=== PATIENT | female | born 1935 | race Caucasian/White ===

== ENCOUNTER 2017-04-17 11:03 | Inpatient (IN) | payer MEDICARE, BC ==
[2017-04-17] MEDS ORDERED: Sodium Chloride 0.9% 10 ML Syringe FLUSH PRN (11:49)
[2017-04-17] MEDS ORDERED: Sodium Chloride 0.9% 1,000 ML IV ONE (11:53)
--- NOTE | 2017-04-17 12:02 | EDM.PDOC ---
ED HPI GENERAL MEDICAL PROBLEM - General Chief Complaint: Abdominal Pain Stated Complaint: FEVER/GALL BLADDER PAIN/L LEG PAIN Time Seen by Provider: 04/17/17 11:27 Source of Information: Reports: Patient History Limitations: Reports: No Limitations - History of Present Illness INITIAL COMMENTS - FREE TEXT/NARRATIVE: 81-year-old female presents for evaluation and treatment of several different complaints. Patient reports that she has been experiencing "gallbladder pain" for the last 2 days. She began concerned last night when she developed a fever. She has not taken any Tylenol or Motrin for her symptoms. She is reporting pain in the epigastric area. No radiation to the back or chest. No shortness of breath. Patient reports that she had a small sip of water today but no other intake to be today. She did not take her medications today. She denies any nausea or vomiting. Patient reports that the fever developed last night. She denies any sore throat, ear pain or cough. She states that she is having a headache across the front of her for head. She felt dizzy this morning. She has not appreciated any blurry vision or double vision. She states that she has been having "lots of reflux " recently. Patient had an EGD and colonoscopy done with Dr. Hernandez on 03-26-17. Diagnosis from the EGD include gastritis and gastric polyps. Diagnosis from the colonoscopy included multiple diverticula, internal hemorrhoid and polyps. Patient reports that she's had an ultrasound of her right upper quadrant. She does not know these results. She has not had a HIDA scan. She states that she is scheduled to see Dr. Beard in [place] this . It does not sound like she is not scheduled for surgery but will see her for consult. Patient reports this is for her gallbladder pain. Patient reports that she had one episode of incontinence today. She is currently on antibiotics for urinary tract infection. She reports she is nearly complete with these. She denies any dysuria. Patient is also complaining of left proximal lower leg pain. States this has been going on for the last few days. She is on Coumadin but has been off of this recently for her EGD and colonoscopy. It has been since restarted. She states that her INR has been subtherapeutic. Her last INR was 1.3. She is supposed to have an INR checked in on . She has not appreciated any erythema. She has no history of blood clots. Patient feels that the swelling in her legs is worse than normal. Known numbness or tingling on her normal to the legs. Patient reports 3 weeks ago she had a steroid injection to her back at L4. This has substantially improved her back pain and she currently has none. No erythema , pus or drainage from the injection site. Past abdominal surgeries includes an appendectomy. Location: Reports: Abdomen (epigastric) Abdominal Pain Score (Numeric/FACES): 3 - Related Data Allergies Allergy/AdvReac Type Severity Reaction Status Date / Time acetaminophen AdvReac Dizziness Verified 07/20/16 08:28 [From Darvocet-N] imipramine HCl AdvReac Fatigue Verified 07/20/16 08:28 [From Tofranil] propoxyphene napsylate AdvReac Dizziness Verified 07/20/16 08:28 [From Darvocet-N] bandaids Allergy Itching Uncoded 07/20/16 08:28 pentapiperium methylsulfate Allergy Cannot Uncoded 07/20/16 08:28 Remember Home Meds: Home Meds Acetaminophen [Tylenol Extra Strength] 500 mg PO BID 07/19/16 [History] Betamethasone Dipropionate [Diprosone 0.05% Crm] 1 applic TOP DAILY PRN [History] Celecoxib [CeleBREX] 200 mg PO DAILY 07/19/16 [History] Denosumab [Prolia] 60 mg SUBCUT ASDIRECTED 07/19/16 [History] Fexofenadine [Sherin] 180 mg PO DAILY PRN 07/19/16 [History] Fish Oil/Mckenzie-3 Fatty Acids [Fish Oil 1,000 MG] 1 cap PO BID 07/19/16 [History] Furosemide 1 tab PO DAILY 07/19/16 [History] Gabapentin [Neurontin] 300 mg PO BEDTIME 07/19/16 [History] Glimepiride 2 mg PO DAILY 07/19/16 [History] Gluc/MSM/C/Arminto/Manganese/Justina [Joint Support Complex Softgel] 1 tab PO DAILY [History] Losartan [Cozaar] 1 tab PO DAILY 07/19/16 [History] Metoprolol Tartrate 50 mg PO BID 07/19/16 [History] Omeprazole 20 mg PO BIDAC 07/19/16 [History] Potassium Chloride [Klor-Con 10] 10 meq PO DAILY 07/19/16 [History] Pravastatin [Pravachol] 40 mg PO BEDTIME 07/19/16 [History] Triamcinolone Acetonide [Nasacort] 1 spray NASBOTH DAILY PRN 07/19/16 [History] Magnesium 100 mg PO BID 04/17/17 [History] Acetaminophen/oxyCODONE [Percocet 325-5 MG] 1 - 2 tab PO Q4H #30 tablet [Rx] Ondansetron [Zofran ODT] 4 mg PO Q6H PRN #10 tab.dis 04/18/17 [Rx] Sennosides/Docusate Sodium [Senna-S] 2 tab PO BID #30 tablet 04/18/17 [Rx] Past Medical History HEENT History: Reports: Cataract, Hard of Hearing, Impaired Vision Cardiovascular History: Reports: Afib, Hypertension, Pacemaker Other Cardiovascular History: tachy/oh syndrome Respiratory History: Reports: None Gastrointestinal History: Reports: Colon Polyp, GERD Musculoskeletal History: Reports: Arthritis, Fracture Other Musculoskeletal History: right tardy ulnar nerve palsy, ankle fracture bilaterally Neurological History: Reports: None Endocrine/Metabolic History: Reports: Diabetes, Type II, Obesity/BMI 30+ Hematologic History: Reports: Anemia Oncologic (Cancer) History: Reports: None Dermatologic History: Reports: Other (See Below) Other Dermatologic History: dry itchy skin - Past Surgical History HEENT Surgical History: Reports: Cataract Surgery Cardiovascular Surgical History: Reports: Pacer GI Surgical History: Reports: Appendectomy, Colonoscopy, EGD Female Surgical History: Reports: Breast Biopsy Neurological Surgical History: Reports: None Other Neurological Surgeries/Procedures: surgery for pinched nerves Musculoskeletal Surgical History: Reports: Carpal Tunnel, Joint Replacement, Other (See Below) Other Musculoskeletal Surgeries/Procedures:: pins and screws in left ankle Social & Family History - Family History Family Medical History: Noncontributory - Tobacco Use Smoking Status *Q: Never Smoker Second Hand Smoke Exposure: No - Caffeine Use Caffeine Use: Reports: Soda - Alcohol Use Days Per Week of Alcohol Use: 0 - Recreational Drug Use Recreational Drug Use: No Drug Use in Last 12 Months: No ED ROS GENERAL - Review of Systems Review Of Systems: See Below Constitutional: Reports: Fever HEENT: Reports: Other (reports hallotosis). Denies: Ear Pain, Throat Pain Respiratory: Denies: Shortness of Breath Cardiovascular: Denies: Chest Pain GI/Abdominal: Reports: Abdominal Pain. Denies: Nausea, Vomiting : Reports: Incontinence (x1 episode) Musculoskeletal: Reports: Leg Pain (left proximal lower leg). Denies: Back Pain Skin: Denies: Pruritis, Erythema Neurological: Reports: Dizziness, Headache, Numbness (reports chronic numbness and decreased sensation to the left lateral leg; no change). Denies: Tingling ED EXAM, GI/ABD - Physical Exam Exam: See Below Exam Limited By: No Limitations General Appearance: Alert, WD/WN, No Apparent Distress, Obese Ears: Normal External Exam, Normal Canal, Hearing Grossly Normal Nose: Normal Inspection Throat/Mouth: Normal Inspection, Normal Voice, No Airway Compromise Respiratory/Chest: No Respiratory Distress, Lungs Clear Cardiovascular: Normal Peripheral Pulses, Regular Rate, Rhythm, Systolic Murmur (grade 2) GI/Abdominal: Normal Bowel Sounds, Soft, Tenderness (epigastric) Back Exam: Normal Inspection. No: Vertebral Tenderness Extremities: Gloria's Sign (left), Other (dorsalis pedis and posterior tibialis pulses 1+ bilaterally; non pitting edema bilaterally). No: Pallor Neurological: Alert, Oriented, Normal Cognition Psychiatric: Normal Affect, Normal Mood Skin Exam: Warm, Dry, Rash (bilateral distal legs has a macular papular erythematous, blanching rash) EKG INTERPRETATION EKG Date: 04/17/17 Time: 12:00 EKG Interpretation Comments: atrial paced rhythm at 73 bpm. Reviewed by myself and Dr. Alfaro Course - Vital Signs Last Recorded V/S: Last Vital Signs Temp 36.2 C 04/19/17 08:17 Pulse 82 04/19/17 09:17 Resp 12 04/19/17 08:17 BP 129/47 L 04/19/17 09:17 Pulse Ox 93 L 04/19/17 08:17 - Orders/Labs/Meds Labs: Laboratory Tests 04/17/17 04/17/17 04/17/17 Range/Units 11:22 11:22 11:22 WBC 7.53 (3.98-10.04) K/mm3 RBC 4.52 (3.98-5.22) M/mm3 Hgb 14.5 (11.2-15.7) gm/L Hct 44.4 (34.1-44.9) % MCV 98.2 H (79.4-94.8) fl MCH 32.1 (25.6-32.2) pg MCHC 32.7 (32.2-35.5) g/dl RDW Std Deviation 57.0 H (36.4-46.3) fL Plt Count 138 L (182-369) K/mm3 MPV 10.9 (9.4-12.3) fl Neutrophils % (Manual) 75 H (40-60) % Band Neutrophils % 9 (0-10) % Lymphocytes % (Manual) 11 L (20-40) % Atypical Lymphs % 0 % Monocytes % (Manual) 4 (2-10) % Eosinophils % (Manual) 1 (0.7-5.8) % Basophils % (Manual) 0 L (0.1-1.2) Platelet Estimate Adequate RBC Morph Comment Normal PT 21.4 H (8.0-13.0) SECONDS INR 1.89 Sodium 139 (136-145) mEq/L Potassium 4.0 (3.5-5.1) mEq/L Chloride 104 (98-107) mEq/L Carbon Dioxide 27 (21-32) mEq/L Anion Gap 12.0 (5-15) BUN 17 (7-18) mg/dL Creatinine 1.4 H (0.55-1.02) mg/dL Est Cr Clr Drug Dosing 23.40 mL/min Estimated GFR (MDRD) 36 (>60) mL/min BUN/Creatinine Ratio 12.1 L (14-18) Glucose 184 H (83-115) mg/dL Lactic Acid (0.4-2.0) mmol/L Calcium 10.0 (8.5-10.1) mg/dL Total Bilirubin 1.3 H (0.2-1.0) mg/dL Direct Bilirubin (0.0-0.2) mg/dl GGT 106 H (5-55) U/L AST 31 (15-37) U/L ALT 37 (14-59) U/L Alkaline Phosphatase 109 (46-116) U/L Troponin I < 0.017 (0.00-0.056) ng/mL C-Reactive Protein 3.5 H* (<1.0) mg/dL B-Natriuretic Peptide (0-100) pg/mL Total Protein 7.3 (6.4-8.2) g/dl Albumin 3.2 L (3.4-5.0) g/dl Globulin 4.1 gm/dL Albumin/Globulin Ratio 0.8 L (1-2) Lipase 78 (73-393) U/L Urine Color (Yellow) Urine Appearance (Clear) Urine pH (5.0-8.0) Ur Specific [place] (1.005-1.030) Urine Protein (Negative) Urine Glucose (UA) (Negative) Urine Ketones (Negative) Urine Occult Blood (Negative) Urine Nitrite (Negative) Urine Bilirubin (Negative) Urine Urobilinogen (0.2-1.0) Ur Leukocyte Esterase (Negative) Urine RBC (0-5) /hpf Urine WBC (0-5) /hpf Ur Epithelial Cells (0-5) /hpf Urine Bacteria (FEW) /hpf Urine Mucus (FEW) /hpf 04/17/17 04/17/17 04/17/17 Range/Units 11:22 12:10 12:27 WBC (3.98-10.04) K/mm3 RBC (3.98-5.22) M/mm3 Hgb (11.2-15.7) gm/L Hct (34.1-44.9) % MCV (79.4-94.8) fl MCH (25.6-32.2) pg MCHC (32.2-35.5) g/dl RDW Std Deviation (36.4-46.3) fL Plt Count (182-369) K/mm3 MPV (9.4-12.3) fl Neutrophils % (Manual) (40-60) % Band Neutrophils % (0-10) % Lymphocytes % (Manual) (20-40) % Atypical Lymphs % % Monocytes % (Manual) (2-10) % Eosinophils % (Manual) (0.7-5.8) % Basophils % (Manual) (0.1-1.2) Platelet Estimate RBC Morph Comment PT (8.0-13.0) SECONDS INR Sodium (136-145) mEq/L Potassium (3.5-5.1) mEq/L Chloride (98-107) mEq/L Carbon Dioxide (21-32) mEq/L Anion Gap (5-15) BUN (7-18) mg/dL Creatinine (0.55-1.02) mg/dL Est Cr Clr Drug Dosing mL/min Estimated GFR (MDRD) (>60) mL/min BUN/Creatinine Ratio (14-18) Glucose (83-115) mg/dL Lactic Acid 2.4 H (0.4-2.0) mmol/L Calcium (8.5-10.1) mg/dL Total Bilirubin (0.2-1.0) mg/dL Direct Bilirubin (0.0-0.2) mg/dl GGT (5-55) U/L AST (15-37) U/L ALT (14-59) U/L Alkaline Phosphatase (46-116) U/L Troponin I (0.00-0.056) ng/mL C-Reactive Protein (<1.0) mg/dL B-Natriuretic Peptide 209 H (0-100) pg/mL Total Protein (6.4-8.2) g/dl Albumin (3.4-5.0) g/dl Globulin gm/dL Albumin/Globulin Ratio (1-2) Lipase (73-393) U/L Urine Color Yellow (Yellow) Urine Appearance Clear (Clear) Urine pH 7.0 (5.0-8.0) Ur Specific [place] 1.020 (1.005-1.030) Urine Protein 1+ H (Negative) Urine Glucose (UA) Negative (Negative) Urine Ketones Trace H (Negative) Urine Occult Blood Negative (Negative) Urine Nitrite Negative (Negative) Urine Bilirubin Negative (Negative) Urine Urobilinogen 1.0 (0.2-1.0) Ur Leukocyte Esterase 1+ H (Negative) Urine RBC Not seen (0-5) /hpf Urine WBC 5-10 H (0-5) /hpf Ur Epithelial Cells 5-10 H (0-5) /hpf Urine Bacteria Few (FEW) /hpf Urine Mucus Few (FEW) /hpf 04/17/ Range/Units 14:50 WBC (3.98-10.04) K/mm3 RBC (3.98-5.22) M/mm3 Hgb (11.2-15.7) gm/L Hct (34.1-44.9) % MCV (79.4-94.8) fl MCH (25.6-32.2) pg MCHC (32.2-35.5) g/dl RDW Std Deviation (36.4-46.3) fL Plt Count (182-369) K/mm3 MPV (9.4-12.3) fl Neutrophils % (Manual) (40-60) % Band Neutrophils % (0-10) % Lymphocytes % (Manual) (20-40) % Atypical Lymphs % % Monocytes % (Manual) (2-10) % Eosinophils % (Manual) (0.7-5.8) % Basophils % (Manual) (0.1-1.2) Platelet Estimate RBC Morph Comment PT (8.0-13.0) SECONDS INR Sodium (136-145) mEq/L Potassium (3.5-5.1) mEq/L Chloride (98-107) mEq/L Carbon Dioxide (21-32) mEq/L Anion Gap (5-15) BUN (7-18) mg/dL Creatinine (0.55-1.02) mg/dL Est Cr Clr Drug Dosing mL/min Estimated GFR (MDRD) (>60) mL/min BUN/Creatinine Ratio (14-18) Glucose (83-115) mg/dL Lactic Acid (0.4-2.0) mmol/L Calcium (8.5-10.1) mg/dL Total Bilirubin (0.2-1.0) mg/dL Direct Bilirubin 0.20 (0.0-0.2) mg/dl GGT (5-55) U/L AST (15-37) U/L ALT (14-59) U/L Alkaline Phosphatase (46-116) U/L Troponin I (0.00-0.056) ng/mL C-Reactive Protein (<1.0) mg/dL B-Natriuretic Peptide (0-100) pg/mL Total Protein (6.4-8.2) g/dl Albumin (3.4-5.0) g/dl Globulin gm/dL Albumin/Globulin Ratio (1-2) Lipase (73-393) U/L Urine Color (Yellow) Urine Appearance (Clear) Urine pH (5.0-8.0) Ur Specific [place] (1.005-1.030) Urine Protein (Negative) Urine Glucose (UA) (Negative) Urine Ketones (Negative) Urine Occult Blood (Negative) Urine Nitrite (Negative) Urine Bilirubin (Negative) Urine Urobilinogen (0.2-1.0) Ur Leukocyte Esterase (Negative) Urine RBC (0-5) /hpf Urine WBC (0-5) /hpf Ur Epithelial Cells (0-5) /hpf Urine Bacteria (FEW) /hpf Urine Mucus (FEW) /hpf Meds: Medications Discontinued Medications Generic Name Dose Route Start Last Admin Trade Name Wilmanq PRN Reason Stop Dose Admin Acetaminophen 650 mg 04/17/17 17:51 04/19/17 06:09 Tylenol PO 650 mg Q6H PRN Administration Pain Bupivacaine HCl/Epinephrine Bitart Confirm 04/18/17 10:23 04/18/17 13:34 Marcaine 0.5%/Epinephrine 1:200,000 Administered 04/18/17 10:24 20 ml Dose Administration 50 ml .ROUTE .STK-MED ONE Diphenhydramine HCl 25 mg 04/18/17 10:11 04/18/17 10:15 Benadryl IVPUSH 04/18/17 10:12 25 mg ONETIME ONE Administration Ephedrine Sulfate Confirm 04/18/17 13:22 Ephedrine In Ns Administered 04/18/17 13:23 Dose 25 mg .ROUTE .STK-MED ONE Fentanyl Confirm 04/18/17 11:46 Sublimaze Administered 04/18/17 11:47 Dose 250 mcg .ROUTE .STK-MED ONE Fentanyl 50 mcg 04/18/17 13:20 Sublimaze IVPUSH 04/18/17 18:00 Q5M PRN Pain Flunisolide 0 ml 04/17/17 16:51 Nasalide Nasal [place] NASBOTH BID PRN stufiness Furosemide 40 mg 04/18/17 09:00 04/19/17 09:15 Lasix PO 40 mg DAILY CHARLINE Administration Gabapentin 300 mg 04/17/17 21:00 04/18/17 20:25 Neurontin PO 300 mg BEDTIME CHARLINE Administration Glycopyrrolate Confirm 04/18/17 14:09 Administered 04/18/17 14:10 Dose 1 mg .ROUTE .STK-MED ONE Hydromorphone HCl 0.5 mg 04/18/17 13:50 Dilaudid IVPUSH 04/18/17 14:06 Q15M PRN severe pain Sodium Chloride 1,000 mls @ 100 mls/hr 04/17/17 11:53 04/17/17 12:13 Normal Saline IV 04/17/17 21:52 100 mls/hr ONETIME ONE Administration Piperacillin Sod/Tazobactam 100 mls @ 25 mls/hr 04/17/17 13:40 04/17/17 14:43 Sod 2.25 gm/ Sodium Chloride IV 04/17/17 17:39 Not Given NOW STA Piperacillin Sod/Tazobactam 100 mls @ 200 mls/hr 04/17/17 14:21 04/17/17 14: 48 Sod 2.25 gm/ Sodium Chloride IV 04/17/17 14:50 100 mls/hr ONETIME ONE Administration Sodium Chloride 1,000 mls @ 100 mls/hr 04/17/17 17:00 Normal Saline IV ASDIRECTED CHARLINE Ceftriaxone Sodium 1 gm/ 100 mls @ 200 mls/hr 04/17/17 17:00 04/17/17 17:33 Sodium Chloride IV Not Given Q24H CHARLINE Ceftriaxone Sodium 1 gm/ 100 mls @ 200 mls/hr 04/17/17 17:00 04/18/17 17:19 Sodium Chloride IV 200 mls/hr Q24H CHARLINE Administration Sodium Chloride 1,000 mls @ 25 mls/hr 04/17/17 17:45 04/18/17 12:13 Normal Saline IV 25 mls/hr ASDIRECTED CHARLINE Administration Lidocaine HCl Confirm 04/18/17 11:46 Xylocaine-Mpf 1% Administered 04/18/17 11:47 Dose 4 mls @ as directed .ROUTE .STK-MED ONE Lidocaine/Epinephrine Confirm 04/18/17 10:23 04/18/17 13:34 Xylocaine 1% With Epinephrine 1:100,000 Administered 04/18/17 10:24 20 ml Dose Administration 20 ml .ROUTE .STK-MED ONE Losartan Potassium 100 mg 04/18/17 09:00 04/19/17 09:15 Cozaar PO 100 mg DAILY CHARLINE Administration Magnesium Oxide 100 mg 04/17/17 21:00 04/19/17 09:15 Magnesium Oxide PO 100 mg BID CHARLINE Administration Meperidine HCl 12.5 mg 04/18/17 13:20 Demerol IVPUSH 04/19/17 13:21 ONETIME PRN shivering Metoprolol Tartrate 50 mg 04/17/17 21:00 04/19/17 09:17 Lopressor PO 50 mg BID CHARLINE Administration Neostigmine Methylsulfate Confirm 04/18/17 14:09 Neostigmine Administered 04/18/17 14:10 Dose 5 mg .ROUTE .STK-MED ONE Ondansetron HCl Confirm 04/18/17 11:46 Zofran Administered 04/18/17 11:47 Dose 4 mg .ROUTE .STK-MED ONE Ondansetron HCl 4 mg 04/18/17 13:20 Zofran IVPUSH 04/18/17 18:00 ONETIME PRN Nausea/Vomiting Pantoprazole Sodium 40 mg 04/18/17 06:00 04/19/17 06:06 Protonix PO 40 mg BIDAC CHARLINE Administration Betamethasone 0 each 04/17/17 16:51 04/19/17 09:45 Dipropionate 0.05% TOP 1 each Cream DAILY PRN Administration Rash Phytonadione 10 mg 04/17/17 15:09 04/17/17 19:50 Aquamephyton PO 04/17/17 15:10 Not Given ONETIME ONE Phytonadione 2.5 mg 04/17/17 15:35 04/17/17 15:40 Aquamephyton PO 04/17/17 15:36 2.5 mg ONETIME ONE Administration Phytonadione 10 mg 04/18/17 09:15 04/18/17 09:21 Aquamephyton PO 04/18/17 09:16 10 mg ONETIME ONE Administration Potassium Chloride 10 meq 04/18/17 09:00 04/19/17 09:15 Klor-Con 10 PO 10 meq DAILY CHARLINE Administration Propofol Confirm 04/18/17 11:46 Diprivan 20 Ml Administered 04/18/17 11:47 Dose 200 mg .ROUTE .STK-MED ONE Rocuronium [place] Confirm 04/18/17 11:46 Zemuron Administered 04/18/17 11:47 Dose 50 mg .ROUTE .STK-MED ONE Simvastatin 20 mg 04/17/17 21:00 04/18/17 20:25 Zocor PO 20 mg BEDTIME CHARLINE Administration Sodium Chloride 10 ml 04/17/17 11:49 04/17/17 12:13 Saline Flush FLUSH 10 ml ASDIRECTED PRN Administration Keep Vein Open - Radiology Interpretation Free Text/Narrative:: Ultrasound of the left lower leg impression per Dr. Campbell: Nothing appreciated to indicate DVT within the left lower extremity or within the right common femoral vein. Findings as described. Ultrasound limited of the right upper quadrant impression per Dr. Campbell 1. Probable fatty infiltration within the liver. 2. Single gallstone within the gallbladder measuring 6.3 mm. 3. No additional abnormalities appreciated. Chest x-ray shows no acute intrathoracic process. - Re-Assessments/Exams Free Text/Narrative Re-Assessment/Exam: 04/17/17 13:34 Labs returned. wbc is 7.53 with 9% bands, hgb is 14.5 and plts are 138 sodium is 139, potassium 4.0 and chloride is 104 anion gapi s 12.0. gluclose is 184. creatinins ie 1.4 Total bili is 1.3, AST is 31, ALT is 37 and alk phos is 109. GGT is 106 pt is 21.4, INR is 1.89 crp is 3.5 BNP is 209 trop is < 0.017 lipase is 78 UA has few bacteria, negative nitrites, 1+ protein, trace ketones and 1+ leuks Preliminary ultrasound report is negative for any DVT. Case discussed with Dr. Villa. Recommend proceeding with the abdominal ultrasound is planned. Recommend starting IV Zosyn. Will probably require admission. I discussed the lab results with the patient. We will obtain an ultrasound of her gallbladder to rule out acute cholecystitis. 04/17/17 15:50 direct bili is 0.20 lactic acid is 2.4 blood and urine cultures obtained. Discussed case with Dr. Hernandez. She knows the patient well. plan will be to admit the patient and have a cholecystectomy tomorrow. asked she only have clears and give 10mg vitamin K to reverse coumadin. Nursing staff had trouble obtaining the 10mg vitamin K. Dr. Danielle was present and felt she only required 2.5mg vitamin K for reversal. Patient was therefore given 2.5 mg vitamin K for coumadin reversal. Admitted to Dr. Hernandez for acute cholecysitis with plan on surgery tomorrow. Departure - Departure Time of Disposition: 15:50 Disposition: Admitted As Inpatient 68 Condition: Fair Clinical Impression: Cholecystitis - Discharge Information
[2017-04-17] MEDS ORDERED: Piperacillin/Tazobactam 2.25 GM in Sodium Chloride 0.9% 100 ML IV STA (13:40)
--- NOTE | 2017-04-17 14:22 | US ---
Left lower extremity deep venous ultrasound: Duplex and color flow imaging was obtained of the left common femoral, superficial femoral, proximal greater saphenous, popliteal, posterior tibial and peroneal veins. Right common femoral vein was also evaluated. Veins within the calf not optimally seen for compression but normal phasic flow is felt to be present within the calf veins. Other veins show normal phasic flow, augmentation and compression. No popliteal cyst is seen. Right common femoral vein is patent. Impression: 1. Findings as described above. Nothing appreciated to indicate deep venous thrombosis within the left lower extremity or within the right common femoral vein. Diagnostic code #1
--- NOTE | 2017-04-17 14:29 | US ---
Limited abdominal ultrasound: Multiple real-time images were obtained of the right upper abdomen. Comparison: No previous right upper quadrant abdominal ultrasound. Technologist's note: Patient had difficulty with deep breathing, gassy Findings: Liver is slightly echogenic. No focal abnormality is appreciated within the liver. Pancreas is mostly obscured from bowel gas. Visualized portions of the pancreas appear unremarkable. Single gallstone is seen within the gallbladder measuring 6.3 mm. No gallbladder wall thickening or biliary duct dilatation is seen. Right kidney measures 9.6 cm in length. Right kidney shows no hydronephrosis or mass. Inferior vena cava and portal vein are patent. Impression: 1. Probable fatty infiltration within the liver. 2. Single gallstone within the gallbladder measuring 6.3 mm. 3. No additional abnormality is appreciated. Diagnostic code #3
[2017-04-17] MEDS: Piperacillin/Tazobactam 2.25 GM in Sodium Chloride 0.9% 100 ML IV ONE ×2 (14:43→14:48)
[2017-04-17] MEDS ORDERED: Phytonadione ORAL 2.5mg/2.5ml Soln Simple Syrup U/D PO ONE ×2 (15:09→15:35)
[2017-04-17] MEDS ORDERED: Sodium Chloride 0.9% 1,000 ML IV SCH (17:00)
[2017-04-17] MEDS ORDERED: cefTRIAXone 1 GM in Sodium Chloride 0.9% 100 ML IV SCH (17:00)
[2017-04-17] MEDS: cefTRIAXone 1 GM in Sodium Chloride 0.9% 100 ML IV SCH (17:32)
--- NOTE | 2017-04-17 17:35 | PCM.HP ---
H&P History of Present Illness - General Date of Service: 04/17/17 Admit Problem/Dx: Admission Diagnosis/Problem Admission Diagnosis/Problem Acute cholecystitis Source of Information: Patient, Old Records, Provider History Limitations: Reports: No Limitations - History of Present Illness Initial Comments - Free Text/Narative: 81 yo woman well known to me presented to ED today with c/o abd pain in epigastrium since yesterday. Has not had anything to eat or drink today. Has known cholelithiases and is currently planning for lap gurpreet in the near future. 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 Is on Coumadin, INR 1.8 in ED today. Recently performed EGD/colonoscopy for the patient which she tolerated well. Total Bilirubin (not direct) slightly elevated today at 1.3. Transaminases unremarkable. Reports low grade fevers at home, highest temp was 100.9 in ED. Denies N/V. Has had some headaches, also notes that she developed rash on bilateral knees this AM, non pruritic. She also has been taking Macrobid for E. Coli UTI inappropriately, was to take 100mg BID, has only been taking 50 mg BID. Still having frequency and some incontinence. CRP elevated in ED to 3.5. WBC normal with a bit of left shift. EKG unchanged and troponin unremarkable. Stress test 2014 - normal, EF > 70%. EKG in ED today. Friend at bedside today. Abdominal Pain Score (Numeric/FACES): 3 - Related Data Allergies/Adverse Reactions: Allergies Allergy/AdvReac Type Severity Reaction Status Date / Time acetaminophen AdvReac Dizziness Verified 07/20/16 08:28 [From Darvocet-N] imipramine HCl AdvReac Fatigue Verified 07/20/16 08:28 [From Tofranil] propoxyphene napsylate AdvReac Dizziness Verified 07/20/16 08:28 [From Darvocet-N] bandaids Allergy Itching Uncoded 07/20/16 08:28 pentapiperium methylsulfate Allergy Cannot Uncoded 07/20/16 08:28 Remember Home Medications: Home Meds Acetaminophen [Tylenol Extra Strength] 500 mg PO BID 07/19/16 [History] Betamethasone Dipropionate [Diprosone 0.05% Crm] 1 applic TOP DAILY PRN [History] Celecoxib [CeleBREX] 200 mg PO DAILY 07/19/16 [History] Denosumab [Prolia] 60 mg SUBCUT ASDIRECTED 07/19/16 [History] Fexofenadine [Sherin] 180 mg PO DAILY PRN 07/19/16 [History] Fish Oil/[place]-3 Fatty Acids [Fish Oil 1,000 MG] 1 cap PO BID 07/19/16 [History] Furosemide 1 tab PO DAILY 07/19/16 [History] Gabapentin [Neurontin] 300 mg PO BEDTIME 07/19/16 [History] Glimepiride 2 mg PO DAILY 07/19/16 [History] Gluc/MSM/C/[place]/Manganese/Justina [Joint Support Complex Softgel] 1 tab PO DAILY [History] Losartan [Cozaar] 1 tab PO DAILY 07/19/16 [History] Metoprolol Tartrate 50 mg PO BID 07/19/16 [History] Omeprazole 20 mg PO BIDAC 07/19/16 [History] Potassium Chloride [Klor-Con 10] 10 meq PO DAILY 07/19/16 [History] Pravastatin [Pravachol] 40 mg PO BEDTIME 07/19/16 [History] Triamcinolone Acetonide [Nasacort] 1 spray NASBOTH DAILY PRN 07/19/16 [History] Warfarin Sodium 2.5 mg PO SUTUWETHSA 07/19/16 [History] Warfarin Sodium 5 mg PO MOFR 07/19/16 [History] Magnesium 100 mg PO BID 04/17/17 [History] Past Medical History HEENT History: Reports: Cataract, Hard of Hearing, Impaired Vision Cardiovascular History: Reports: Afib, Hypertension, Pacemaker Other Cardiovascular History: tachy/oh syndrome Gastrointestinal History: Reports: Colon Polyp, GERD Genitourinary History: Reports: Urinary Incontinence, UTI, Recurrent Musculoskeletal History: Reports: Arthritis, Fracture Other Musculoskeletal History: right tardy ulnar nerve palsy, ankle fracture bilaterally Endocrine/Metabolic History: Reports: Diabetes, Type II, Obesity/BMI 30+ Hematologic History: Reports: Anemia Dermatologic History: Reports: Other (See Below) Other Dermatologic History: dry itchy skin - Past Surgical History HEENT Surgical History: Reports: Cataract Surgery Cardiovascular Surgical History: Reports: Pacer GI Surgical History: Reports: Appendectomy, Colonoscopy, EGD Female Surgical History: Reports: Breast Biopsy Neurological Surgical History: Reports: None Other Neurological Surgeries/Procedures: surgery for pinched nerves Musculoskeletal Surgical History: Reports: Carpal Tunnel, Joint Replacement, Knee Replacement (LEFT), Other (See Below) Other Musculoskeletal Surgeries/Procedures:: pins and screws in left ankle Oncologic Surgical History: Reports: Biopsy of Breast Social & Family History - Family History Family Medical History: Noncontributory Other Family History: [place] - FA - , Encephalitis 1 Brother of [place] - Tobacco Use Smoking Status *Q: Never Smoker Second Hand Smoke Exposure: No - Caffeine Use Caffeine Use: Reports: Soda - Alcohol Use Days Per Week of Alcohol Use: 0 - Recreational Drug Use Recreational Drug Use: No Drug Use in Last 12 Months: No - Living Situation & Occupation Living situation: Reports: Occupation: Retired Social History Comment: Patient is . She lives alone. She has 1 child and 2 adopted children. She is retired. Caffeine use is 1 can of Pepsi daily. H&P Review of Systems - Review of Systems: Review Of Systems: See Below General: Reports: Chills HEENT: Reports: Headaches Pulmonary: Reports: No Symptoms Cardiovascular: Reports: No Symptoms Gastrointestinal: Reports: Abdominal Pain (epigastrium ). Denies: Anorexia, Black Stool, Bloody Stool, Decreased Appetite, Nausea, Vomiting Genitourinary: Reports: Frequency, Incontinence Musculoskeletal: Reports: Joint Pain Skin: Reports: Rash (bilateral knees ) Psychiatric: Reports: No Symptoms Neurological: Reports: No Symptoms Hematologic/Lymphatic: Reports: No Symptoms Immunologic: Reports: No Symptoms Exam - Exam Exam: See Below - Vital Signs Vital Signs: Last Vital Signs Temp 99.0 F 04/17/17 16:30 Pulse 73 04/17/17 16:30 Resp 14 04/17/17 16:30 BP 138/90 04/17/17 16:30 Pulse Ox 94 L 04/17/17 16:30 Weight: 187 lb 12.8 oz - Exam Quality Assessment: No: Supplemental Oxygen General: Alert, Oriented, Cooperative HEENT: Conjunctiva Clear. No: Scleral Icterus Neck: Supple, Trachea Midline Lungs: Clear to Auscultation, Normal Respiratory Effort Cardiovascular: Regular Rate, Regular Rhythm Abdomen: Soft. No: Peritoneal Signs, Distention, Guarding, Rigidity, Rebound Rectal (Female) Exam: Deferred Extremities: No: Clubbing, Cyanosis, Calf Tenderness, Edema Skin: Warm, Dry, Intact, Rash (macular patches, none greater than 2 cm on the bilateral knees ) Neurological: Normal Speech. No: Focal Deficit Neuro Extensive - Mental Status: Alert, Oriented x3, Normal Mood/Affect, Normal Cognition, Memory Intact Psychiatric: Alert, Normal Affect, Normal Mood - Patient Data Result Diagrams: 04/17/17 11:22 04/17/17 11:22 Imaging Impressions Last 24 hrs: I personally reviewed the pt's US and CXR. Gallstone present, no GBW thickening , no pericholecystic fluid, no intra or extrahepatic ductal dilation. CXR with no evidence of acute issues, PCM in place. *Q Meaningful Use (ADM) - VTE *Q VTE Criteria *Q: - Stroke *Q Stroke Criteria *Q: - AMI *Q AMI Criteria *Q: - Problem List (1) Acute cholecystitis due to biliary calculus SNOMED Code(s): 10779611758636 ICD Code: K80.00 - CALCULUS OF GALLBLADDER W ACUTE CHOLECYST W/O OBSTRUCTION Status: Acute Current Visit: Yes (2) Cholelithiases SNOMED Code(s): 939953862 ICD Code: K80.20 - CALCULUS OF GALLBLADDER W/O CHOLECYSTITIS W/O OBSTRUCTION Status: Acute Current Visit: Yes (3) Diabetes mellitus SNOMED Code(s): 33469372 ICD Code: E11.9 - TYPE 2 DIABETES MELLITUS WITHOUT COMPLICATIONS Status: Chronic Current Visit: Yes Qualifiers: Diabetes mellitus type: type 2 (4) Rash SNOMED Code(s): 383506220, 624783338 ICD Code: R21 - RASH AND OTHER NONSPECIFIC SKIN ERUPTION Status: Acute Current Visit: Yes (5) Leg pain SNOMED Code(s): 54728068 ICD Code: M79.606 - PAIN IN LEG, UNSPECIFIED Status: Acute Current Visit : Yes Qualifiers: Laterality: left Qualified Code(s): M79.605 - Pain in left leg (6) Pacemaker SNOMED Code(s): 773699351, 944593632 ICD Code: Z95.0 - PRESENCE OF CARDIAC PACEMAKER Status: Chronic Current Visit: Yes (7) Atrial fibrillation SNOMED Code(s): 00126806 ICD Code: I48.91 - UNSPECIFIED ATRIAL FIBRILLATION Status: Chronic Current Visit: Yes (8) Tachy-oh syndrome SNOMED Code(s): 37191816 ICD Code: I49.5 - SICK SINUS SYNDROME Status: Chronic Current Visit: Yes Problem List Initiated/Reviewed/Updated: Yes Orders Last 24hrs: Active Orders 24 hr Category Date Time Status Patient Status [ADT] Routine ADT 04/17/17 16:06 Active Antiembolic Devices [RC] .Routine Care 04/17/17 16:48 Active Antiembolic Devices [RC] PER UNIT ROUTINE Care 04/17/17 16:48 Active Blood Glucose Check, Bedside [RC] Q6HR Care 04/17/17 16:51 Active Cardiac Monitoring [RC] . DIRECTED Care 04/17/17 16:06 Active Intake and Output [RC] Q4HR Care 04/17/17 16:53 Active Notify Provider Intake and Out [RC] ASDIRECTED Care 04/17/17 16:53 Active Notify Provider Vital Signs [RC] PRN Care 04/17/17 16:53 Active VTE/DVT Education [RC] PER UNIT ROUTINE Care 04/17/17 16:48 Active Vital Signs [RC] Q4HR Care 04/17/17 16:53 Active Clear Liquid Diet [DIET] Diet 04/17/17 Dinner Active Nothing per Oral After Midnight Diet [DIET] Diet 04/17/17 Dinner Active CBC WITH AUTO DIFF [HEME] AM Lab 04/18/17 05:11 Ordered COMPREHENSIVE METABOLIC PN,CMP [CHEM] AM Lab 04/18/17 05:11 Ordered INR,PT,PROTHROMBIN TIME [COAG] AM Lab 04/18/17 05:11 Ordered Betamethasone Dipropionate Med 04/17/17 16:51 Ordered 1 applic TOP DAILY PRN Flunisolide [Nasalide Nasal [place]] Med 04/17/17 16:51 Active 0 ml NASBOTH BID PRN Furosemide [Lasix] Med 04/18/17 09:00 Active 40 mg PO DAILY Gabapentin [Neurontin] Med 04/17/17 21:00 Active 300 mg PO BEDTIME Losartan [Cozaar] Med 04/18/17 09:00 Active 100 mg PO DAILY Metoprolol Tartrate [Lopressor] Med 04/17/17 21:00 Active 50 mg PO BID Pantoprazole [ProTONIX] Med 04/18/17 06:00 Active 40 mg PO BIDAC Potassium Chloride [Klor-Con 10] Med 04/18/17 09:00 Active 10 meq PO DAILY Simvastatin [Zocor] Med 04/17/17 21:00 Active 20 mg PO BEDTIME Sodium Chloride 0.9% [Normal Saline] 1,000 ml Med 04/17/17 17:00 Active IV ASDIRECTED cefTRIAXone [Rocephin] 1 gm Med 04/17/17 17:00 Active Sodium Chloride 0.9% [Normal Saline] 100 ml IV Q24H Antiembolic Hose [OM.PC] Routine Oth 04/17/17 16:47 Ordered DVT/VTE Prophylaxis Reflex [OM.PC] Routine Oth 04/17/17 16:47 Ordered Resuscitation Status Routine Resus Stat 04/17/17 16:47 Ordered Medication Orders Flunisolide (Nasalide Nasal [place]) 0 ml NASBOTH BID PRN PRN Reason: stufiness Furosemide (Lasix) 40 mg PO DAILY [facility]LINE Gabapentin (Neurontin) 300 mg PO BEDTIME CHARLINE Sodium Chloride (Normal Saline) 1,000 mls @ 100 mls/hr IV ASDIRECTED CHARLINE Ceftriaxone Sodium 1 gm/ (Sodium Chloride) 100 mls @ 200 mls/hr IV Q24H CHARLINE Losartan Potassium (Cozaar) 100 mg PO DAILY CHARLINE Metoprolol Tartrate (Lopressor) 50 mg PO BID CHARLINE Non-Formulary Medication (Betamethasone Dipropionate) 1 applic TOP DAILY PRN PRN Reason: Rash Pantoprazole Sodium (Protonix) 40 mg PO BIDAC CHARLINE Potassium Chloride (Klor-Con 10) 10 meq PO DAILY CHARLINE Simvastatin (Zocor) 20 mg PO BEDTIME CHARLINE Sodium Chloride (Saline Flush) 10 ml FLUSH ASDIRECTED PRN PRN Reason: Keep Vein Open Last Admin: 04/17/17 12:13 Dose: 10 ml Assessment/Plan Comment:: 81 yo with acute cholecystitis 2/2 cholelithiases, rash on bilateral knees and left leg pain, ? persistent UTI - patient was taking abx previously prescribed incorrectly Also, w/ PMH of Afib, now w/ PCM Tachy-oh syndrome HTN Hearing loss DM 2 - controlled, last A1C 6.7% Arthritis We discussed laparoscopic cholecystectomy for treatment of acute cholecystitis and associated symptoms. We discussed risks of the procedure including pain, bleeding, need for additional procedures, damage to surrounding structures including the biliary system and common bile duct, liver, small bowel, stomach and colon. We discussed the risk of postoperative change in bowel habits which can be permanent. We reviewed the post-operative lifting restrictions of no more than 20 lbs for 4 weeks. The patient's questions were answered. Will provide Rocephin 1gm IV daily for cholecystitis Urine culture pending, UTI may persist as had been taking too low a dose of Macrobid at home Rash on bilateral knees, uncertain etiology, started today prior to any medications will monitor CLD tonight, NPO at ID, plan for surgery tomorrow around 12 Coumadin held, Vit K given, will recheck INR in AM LEFT leg pain, currently not particularly painful, no evidence of DVT or other abnormality on US in ED
[2017-04-17] MEDS: Acetaminophen 325 MG Tab PO PRN (18:31)
[2017-04-17] MEDS: Magnesium Oxide 400 MG Tab PO SCH (20:48)
[2017-04-17] MEDS: Metoprolol Tartrate 50 MG Tab PO SCH (20:48)
[2017-04-17] MEDS: Simvastatin 20 MG Tab PO SCH (20:49)
[2017-04-17] MEDS: Gabapentin 300 MG Cap PO SCH (20:49)
[2017-04-18] MEDS: Pantoprazole 40 MG Tab.CR PO SCH ×2 (06:07→17:17)
--- NOTE | 2017-04-18 08:03 | CR ---
Chest: Portable view of the chest was obtained. Comparison: No previous chest x-ray. Heart size is slightly enlarged but somewhat accentuated from portable technique. Pacemaker is noted. Lungs are clear with no acute infiltrates. Bony structures are grossly intact. Impression: 1. Incidental findings. Nothing acute is identified on portable chest x-ray. Diagnostic code #2
[2017-04-18] MEDS: Metoprolol Tartrate 50 MG Tab PO SCH ×2 (08:53→20:25)
[2017-04-18] MEDS: Losartan 100 MG Tab PO SCH (08:55)
[2017-04-18] MEDS: Potassium Chloride 10 MEQ Tab.ER PO SCH (08:56)
[2017-04-18] MEDS: Furosemide 40 MG Tab PO SCH (08:56)
[2017-04-18] MEDS: Magnesium Oxide 400 MG Tab PO SCH ×2 (08:56→20:25)
[2017-04-18] MEDS ORDERED: Phytonadione ORAL 2.5mg/2.5ml Soln Simple Syrup U/D PO ONE (09:15)
[2017-04-18] MEDS ORDERED: diphenhydrAMINE 50 MG/ML SDV IVPUSH ONE (10:11)
[2017-04-18] MEDS ORDERED: Lidocaine 1% with EPINEPHrine 1:100,000 20 ML MDV ONE (10:23)
[2017-04-18] MEDS ORDERED: Bupivacaine 0.5%/EPINEPHrine 1:200,000 50 ML MDV ONE (10:23)
--- NOTE | 2017-04-18 11:11 | PCM.PREANE ---
[id number]/Transfusion/Family Hx Anesthesia History: Prior Anesthesia Without Reaction Family History of Anesthesia Reaction: No Transfusion History: No Prior Transfusion(s) Intubation History: Unknown - Review of Systems General: No Symptoms Pulmonary: No Symptoms Cardiovascular: Other (HTN- controlled with medication, Afib- on chornic anticoagulation, SSS- pateint has pacemaker. ) Gastrointestinal: No symptoms Neurological: No Symptoms Other: Reports: Easy Bleeding (on coumadin), Easy Bruising, Diabetes (oral medication controlled) - Physical Assessment NPO Status Date: 04/17/17 NPO Status Time: 23:59 Pulse: 85 O2 Sat by Pulse Oximetry: 98 Respiratory Rate: 20 Blood Pressure: 138/69 Temperature: 36.7 C Vital Signs: Last Vital Signs Temp 36.7 C 04/18/17 08:14 Pulse 85 04/18/17 08:53 Resp 2 L 04/18/17 08:14 BP 138/69 04/18/17 08:53 Pulse Ox 98 04/18/17 08:14 Height: 1.52 m Weight: 85.185 kg ASA Class: 3 Mental Status: Alert & Oriented x3 Airway Class: Mallampati = 1 Dentition: Reports: Normal Dentition Thyro-Mental Finger Breadths: 3 Mouth Opening Finger Breadths: 3 ROM/Head Extension: Full Lungs: Clear to auscultation, Normal respiratory effort Cardiovascular: Regular Rate, Regular Rhythm - Lab Values: Laboratory Last Values WBC 6.12 K/mm3 (3.98-10.04) 04/18/17 05:41 RBC 4.23 M/mm3 (3.98-5.22) 04/18/17 05:41 Hgb 13.5 gm/L (11.2-15.7) 04/18/17 05:41 Hct 41.5 % (34.1-44.9) 04/18/17 05:41 MCV 98.1 fl (79.4-94.8) H 04/18/17 05:41 MCH 31.9 pg (25.6-32.2) 04/18/17 05:41 MCHC 32.5 g/dl (32.2-35.5) 04/18/17 05:41 RDW Std Deviation 57.6 fL (36.4-46.3) H 04/18/17 05:41 Plt Count 123 K/mm3 (182-369) L 04/18/17 05:41 MPV 11.2 fl (9.4-12.3) 04/18/17 05:41 Neut % (Auto) 63.8 % (34.0-71.1) 04/18/17 05:41 Lymph % (Auto) 19.0 % (19.3-51.7) L 04/18/17 05:41 [place] % (Auto) 11.4 % (4.7-12.5) 04/18/17 05:41 Eos % (Auto) 5.4 (0.7-5.8) 04/18/17 05:41 Baso % (Auto) 0.2 % (0.1-1.2) 04/18/17 05:41 Neut # (Auto) 3.91 K/mm3 (1.56-6.13) 04/18/17 05:41 Lymph # (Auto) 1.16 K/mm3 (1.18-3.74) L 04/18/17 05:41 [place] # (Auto) 0.70 K/mm3 (0.24-0.36) H 04/18/17 05:41 Eos # (Auto) 0.33 K/mm3 (0.04-0.36) 04/18/17 05:41 Baso # (Auto) 0.01 K/mm3 (0.01-0.08) 04/18/17 05:41 Neutrophils % (Manual) 75 % (40-60) H 04/17/17 11:22 Band Neutrophils % 9 % (0-10) 04/17/17 11:22 Lymphocytes % (Manual) 11 % (20-40) L 04/17/17 11:22 Atypical Lymphs % 0 % 04/17/17 11:22 Monocytes % (Manual) 4 % (2-10) 04/17/17 11:22 Eosinophils % (Manual) 1 % (0.7-5.8) 04/17/17 11:22 Basophils % (Manual) 0 (0.1-1.2) L 04/17/17 11:22 Platelet Estimate Adequate 04/17/17 11:22 RBC Morph Comment Normal 04/17/17 11:22 PT 16.8 SECONDS (8.0-13.0) H 04/18/17 05:41 INR 1.50 04/18/17 05:41 Sodium 142 mEq/L (136-145) 04/18/17 05:41 Potassium 3.9 mEq/L (3.5-5.1) 04/18/17 05:41 Chloride 108 mEq/L (98-107) H 04/18/17 05:41 Carbon Dioxide 25 mEq/L (21-32) 04/18/17 05:41 Anion Gap 12.9 (5-15) 04/18/17 05:41 BUN 14 mg/dL (7-18) 04/18/17 05:41 Creatinine 1.2 mg/dL (0.55-1.02) H 04/18/17 05:41 Est Cr Clr Drug Dosing 27.30 mL/min 04/18/17 05:41 Estimated GFR (MDRD) 43 mL/min (>60) 04/18/17 05:41 BUN/Creatinine Ratio 11.7 (14-18) L 04/18/17 05:41 Glucose 132 mg/dL (83-115) H 04/18/17 05:41 POC Glucose 119 mg/dL (83-110) H 04/18/17 05:45 Lactic Acid 2.4 mmol/L (0.4-2.0) H 04/17/17 12:27 Calcium 9.0 mg/dL (8.5-10.1) 04/18/17 05:41 Total Bilirubin 1.2 mg/dL (0.2-1.0) H 04/18/17 05:41 Direct Bilirubin 0.20 mg/dl (0.0-0.2) 04/17/17 14:50 GGT 106 U/L (5-55) H 04/17/17 11:22 AST 29 U/L (15-37) 04/18/17 05:41 ALT 32 U/L (14-59) 04/18/17 05:41 Alkaline Phosphatase 84 U/L (46-116) 04/18/17 05:41 Troponin I < 0.017 ng/mL (0.00-0.056) 04/17/17 11:22 C-Reactive Protein 3.5 mg/dL (<1.0) H* 04/17/17 11:22 B-Natriuretic Peptide 209 pg/mL (0-100) H 04/17/17 11:22 Total Protein 6.0 g/dl (6.4-8.2) L 04/18/17 05:41 Albumin 2.5 g/dl (3.4-5.0) L 04/18/17 05:41 Globulin 3.5 gm/dL 04/18/17 05:41 Albumin/Globulin Ratio 0.7 (1-2) L 04/18/17 05:41 Lipase 78 U/L (73-393) 04/17/17 11:22 Urine Color Yellow (Yellow) 04/17/17 12:10 Urine Appearance Clear (Clear) 04/17/17 12:10 Urine pH 7.0 (5.0-8.0) 04/17/17 12:10 Ur Specific [place] 1.020 (1.005-1.030) 04/17/17 12:10 Urine Protein 1+ (Negative) H 04/17/17 12:10 Urine Glucose (UA) Negative (Negative) 04/17/17 12:10 Urine Ketones Trace (Negative) H 04/17/17 12:10 Urine Occult Blood Negative (Negative) 04/17/17 12:10 Urine Nitrite Negative (Negative) 04/17/17 12:10 Urine Bilirubin Negative (Negative) 04/17/17 12:10 Urine Urobilinogen 1.0 (0.2-1.0) 04/17/17 12:10 Ur Leukocyte Esterase 1+ (Negative) H 04/17/17 12:10 Urine RBC Not seen /hpf (0-5) 04/17/17 12:10 Urine WBC 5-10 /hpf (0-5) H 04/17/17 12:10 Ur Epithelial Cells 5-10 /hpf (0-5) H 04/17/17 12:10 Urine Bacteria Few /hpf (FEW) 04/17/17 12:10 Urine Mucus Few /hpf (FEW) 04/17/17 12:10 - Imaging/EKG Impressions: 04-17-17 Atrial paced rhythm HR73 Lfet BBB - Allergies Allergies/Adverse Reactions: Allergies Allergy/AdvReac Type Severity Reaction Status Date / Time acetaminophen AdvReac Dizziness Verified 07/20/16 08:28 [From Darvocet-N] imipramine HCl AdvReac Fatigue Verified 07/20/16 08:28 [From Tofranil] propoxyphene napsylate AdvReac Dizziness Verified 07/20/16 08:28 [From [place]-Chris] bandaids Allergy Itching Uncoded 07/20/16 08:28 pentapiperium methylsulfate Allergy Cannot Uncoded 07/20/16 08:28 Remember PreAnesthesia Questionnaire HEENT History: Reports: Cataract, Hard of Hearing, Impaired Vision Cardiovascular History: Reports: Afib, Hypertension, Pacemaker Other Cardiovascular History: tachy/oh syndrome Respiratory History: Reports: None Gastrointestinal History: Reports: Colon Polyp, GERD Genitourinary History: Reports: Urinary Incontinence, UTI, Recurrent Musculoskeletal History: Reports: Arthritis, Fracture Other Musculoskeletal History: right tardy ulnar nerve palsy, ankle fracture bilaterally Neurological History: Reports: None Endocrine/Metabolic History: Reports: Diabetes, Type II, Obesity/BMI 30+ Hematologic History: Reports: Anemia Oncologic (Cancer) History: Reports: None Dermatologic History: Reports: Other (See Below) Other Dermatologic History: dry itchy skin - Past Surgical History HEENT Surgical History: Reports: Cataract Surgery Cardiovascular Surgical History: Reports: Pacer GI Surgical History: Reports: Appendectomy, Colonoscopy, EGD Female Surgical History: Reports: Breast Biopsy Neurological Surgical History: Reports: None Other Neurological Surgeries/Procedures: surgery for pinched nerves Musculoskeletal Surgical History: Reports: Carpal Tunnel, Joint Replacement, Other (See Below) Other Musculoskeletal Surgeries/Procedures:: pins and screws in left ankle - SUBSTANCE USE Smoking Status *Q: Never Smoker Tobacco Use Within Last Twelve Months: No Second Hand Smoke Exposure: No Days Per Week of Alcohol Use: 0 Recreational Drug Use History: No - HOME MEDS Home Medications: Home Meds Acetaminophen [Tylenol Extra Strength] 500 mg PO BID 07/19/16 [History] Betamethasone Dipropionate [Diprosone 0.05% Crm] 1 applic TOP DAILY PRN [History] Celecoxib [CeleBREX] 200 mg PO DAILY 07/19/16 [History] Denosumab [Prolia] 60 mg SUBCUT ASDIRECTED 07/19/16 [History] Fexofenadine [Sherin] 180 mg PO DAILY PRN 07/19/16 [History] Fish Oil/[place]-3 Fatty Acids [Fish Oil 1,000 MG] 1 cap PO BID 07/19/16 [History] Furosemide 1 tab PO DAILY 07/19/16 [History] Gabapentin [Neurontin] 300 mg PO BEDTIME 07/19/16 [History] Glimepiride 2 mg PO DAILY 07/19/16 [History] Gluc/MSM/C/[place] [Joint Support Complex Softgel] 1 tab PO DAILY [History] Losartan [Cozaar] 1 tab PO DAILY 07/19/16 [History] Metoprolol Tartrate 50 mg PO BID 07/19/16 [History] Omeprazole 20 mg PO BIDAC 07/19/16 [History] Potassium Chloride [Klor-Con 10] 10 meq PO DAILY 07/19/16 [History] Pravastatin [Pravachol] 40 mg PO BEDTIME 07/19/16 [History] Triamcinolone Acetonide [Nasacort] 1 spray NASBOTH DAILY PRN 07/19/16 [History] Warfarin Sodium 2.5 mg PO SUTUWETHSA 07/19/16 [History] Warfarin Sodium 5 mg PO MOFR 07/19/16 [History] Magnesium 100 mg PO BID 04/17/17 [History] - CURRENT (IN HOUSE) MEDS Current Meds: Current Medications Acetaminophen (Tylenol) 650 mg PO Q6H PRN PRN Reason: Pain Last Admin: 04/17/17 18:31 Dose: 650 mg Flunisolide (Nasalide Nasal [place]) 0 ml NASBOTH BID PRN PRN Reason: stufiness Furosemide (Lasix) 40 mg PO DAILY [facility] Last Admin: 04/18/17 08:56 Dose: Not Given Gabapentin (Neurontin) 300 mg PO BEDTIME [facility] Last Admin: 04/17/17 20:49 Dose: 300 mg Ceftriaxone Sodium 1 gm/ (Sodium Chloride) 100 mls @ 200 mls/hr IV Q24H [facility] Last Admin: 04/17/17 17:32 Dose: 200 mls/hr Sodium Chloride (Normal Saline) 1,000 mls @ 25 mls/hr IV ASDIRECTED [facility] Losartan Potassium (Cozaar) 100 mg PO DAILY [facility] Last Admin: 04/18/17 08:55 Dose: Not Given Magnesium Oxide (Magnesium Oxide) 100 mg PO BID [facility] Last Admin: 04/18/17 08:56 Dose: Not Given Metoprolol Tartrate (Lopressor) 50 mg PO BID [facility] Last Admin: 04/18/17 08:53 Dose: 50 mg Pantoprazole Sodium (Protonix) 40 mg PO BIDAC [facility] Last Admin: 04/18/17 06:07 Dose: Not Given Betamethasone Dipropionate 0.05% Cream 0 each TOP DAILY PRN PRN Reason: Rash Potassium Chloride (Klor-Con 10) 10 meq PO DAILY [facility] Last Admin: 04/18/17 08:56 Dose: Not Given Simvastatin (Zocor) 20 mg PO BEDTIME [facility] Last Admin: 04/17/17 20:49 Dose: 20 mg Sodium Chloride (Saline Flush) 10 ml FLUSH ASDIRECTED PRN PRN Reason: Keep Vein Open Last Admin: 04/17/17 12:13 Dose: 10 ml Discontinued Medications Bupivacaine HCl/Epinephrine Bitart ([place]aine 0.5%/Epinephrine 1:200,000) Confirm Administered Dose 50 ml .ROUTE .STK-MED ONE Stop: 04/18/17 10:24 Diphenhydramine HCl (Benadryl) 25 mg IVPUSH ONETIME ONE Stop: 04/18/17 10:12 Last Admin: 04/18/17 10:15 Dose: 25 mg Sodium Chloride (Normal Saline) 1,000 mls @ 100 mls/hr IV ONETIME ONE Stop: 04/17/17 21:52 Last Admin: 04/17/17 12:13 Dose: 100 mls/hr Piperacillin Sod/Tazobactam (Sod 2.25 gm/ Sodium Chloride) 100 mls @ 25 mls/hr IV NOW STA Stop: 04/17/17 17:39 Last Admin: 04/17/17 14:43 Dose: Not Given Piperacillin Sod/Tazobactam (Sod 2.25 gm/ Sodium Chloride) 100 mls @ 200 mls/ hr IV ONETIME ONE Stop: 04/17/17 14:50 Last Admin: 04/17/17 14:48 Dose: 100 mls/hr Sodium Chloride (Normal Saline) 1,000 mls @ 100 mls/hr IV ASDIRECTED CHARLINE Ceftriaxone Sodium 1 gm/ (Sodium Chloride) 100 mls @ 200 mls/hr IV Q24H [facility] Last Admin: 04/17/17 17:33 Dose: Not Given Lidocaine/Epinephrine (Xylocaine 1% With Epinephrine 1:100,000) Confirm Administered Dose 20 ml .ROUTE .STK-MED ONE Stop: 07/05/17 10:24 Phytonadione (Aquamephyton) 10 mg PO ONETIME ONE Stop: 04/17/17 15:10 Last Admin: 04/17/17 19:50 Dose: Not Given Phytonadione (Aquamephyton) 2.5 mg PO ONETIME ONE Stop: 04/17/17 15:36 Last Admin: 04/17/17 15:40 Dose: 2.5 mg Phytonadione (Aquamephyton) 10 mg PO ONETIME ONE Stop: 04/18/17 09:16 Last Admin: 04/18/17 09:21 Dose: 10 mg
[2017-04-18] MEDS ORDERED: Rocuronium 50 MG/5 ML Vial ONE (11:46)
[2017-04-18] MEDS ORDERED: Lidocaine 1% 4 ML ONE (11:46)
[2017-04-18] MEDS ORDERED: Propofol 200 MG/20 ML SDV ONE (11:46)
[2017-04-18] MEDS ORDERED: fentaNYL 250 MCG/5 ML SDV ONE (11:46)
[2017-04-18] MEDS ORDERED: Ondansetron 4 MG/2 ML SDV ONE (11:46)
[2017-04-18] MEDS: Sodium Chloride 0.9% 1,000 ML IV SCH ×2 (11:50→12:13)
[2017-04-18] MEDS ORDERED: Meperidine PF 50 MG/ML Syringe IVPUSH PRN (13:20)
[2017-04-18] MEDS ORDERED: Ondansetron 4 MG/2 ML SDV IVPUSH PRN (13:20)
[2017-04-18] MEDS ORDERED: fentaNYL 100 MCG/2 ML SDV IVPUSH PRN (13:20)
[2017-04-18] MEDS ORDERED: ePHEDrine/Normal Saline 25 MG/5 ML Syringe ONE (13:22)
[2017-04-18] MEDS ORDERED: HYDROmorphone 0.5 MG/0.5 ML Syringe IVPUSH PRN (13:50)
--- NOTE | 2017-04-18 14:05 | PCM.OPNOTE ---
- General Post-Op/Procedure Note Date of Surgery/Procedure: 04/18/17 Operative Procedure(s): Laparoscopic cholecystectomy Pre Op Diagnosis: Acute cholecystitis, cholelithiases Post-Op Diagnosis: Same Anesthesia Technique: General ET tube, Local (40 mL) Primary Surgeon: Bárbara Hernandez Anesthesia Provider: Serina Moreno Pathology: Gallbladder and contents Fluid Replacement, Intraop: 500 (mL crystalloid ) EBL in mLs: 10 Complications: None Condition: Good Free Text/Narrative:: INDICATION FOR PROCEDURE: The patient is a 81-year-old woman who had been referred to me by Dr. Jung. She recently was admitted to my service from the emergency department for acute cholecystitis with known cholelithiasis. The patient did have an elevated indirect bilirubin, her direct bilirubin was normal. Her liver function tests were also normal. I discussed with the patient performing a laparoscopic cholecystectomy and associated risks of the procedure. The patient found these risks acceptable and agreed to proceed. DESCRIPTION OF PROCEDURE: The patient was taken to the operating room and placed in the supine position. Sequential compressive devices were placed on the bilateral lower extremities. After induction of general endotracheal anesthesia, the abdomen was prepped and draped in the usual sterile fashion. Preoperative antibiotics had been administered as per protocol. A supraumbilical curvilinear incision was made using a scalpel. This was deepened down through the subcutaneous tissues to the anterior abdominal wall fascia which was elevated and incised. The abdomen was bluntly entered using a hemostat. An 0 Vicryl stay suture was placed. A Webber cannula was introduced into the abdomen and the abdomen was insufflated to 15 mm of mercury. The abdomen was then surveyed. No abnormality was noted within the pelvis or the bilateral groins. The liver was nodular in appearance. The stomach was unremarkable. Attention was turned then to the patient's gallbladder which was white in coloration with omental and duodenal adhesions. Two additional 5 mm trocars were then placed under direct visualization after first injecting local anesthetic, one in the epigastrium and one in the right subcostal margin. The gallbladder fundus was elevated, and the triangle of Calot was dissected. The gallbladder was first aspirated to decompress it. Green bile was obtained. The adhesions were taken down using both blunt dissection and hook electrocautery. The critical view of safety was obtained. The cystic duct and the cystic artery were triply clipped and transected using Endo Michelle. The cystic artery was anterior to the cystic duct. The gallbladder was then taken off the liver bed using hook electrocautery. The gallbladder was placed into an EndoCatch bag. The abdomen was irrigated and suctioned until the effluent was clear. The liver bed was reinspected for hemostasis. A piece of Surgicel was placed in the liver bed as an added precaution, as the patient does chronically take Coumadin for atrial fibrillation. Prior to surgery patient's INR abdomen 1.34. The 5 mm trocars were removed with no evidence of bleeding. The Webber cannula and gallbladder within the EndoCatch bag were then removed. The gallbladder had a small palpable stone present within it. The patient's fascial incision was closed using an 0 Vicryl [id number] suture. Additional local anesthetic was injected cassandra-incisionally. The incisions were then closed using subcuticular 4-0 Monocryl suture. Dermabond was placed over the patient's skin incisions. The patient was then awakened from anesthesia, extubated, and transferred to the recovery room in stable condition having tolerated the procedure well. Sponge and instrument counts were reported as correct at the end of the case. POSTOPERATIVE PLAN: I discussed with the patient's daughter my intraoperative findings recommendations. We will see how she does later today, she does live in [place] and could go home with her daughter earlier this evening if she feels up to it. Otherwise, we will plan for discharge tomorrow. Prescriptions for Percocet 5/325mg were given in addition to Zofran ODT and senna S. They will follow up in 2 weeks for a post-operative check after discharge. They are not lift over 20 pounds for the next 4 weeks. They are to call the office with any questions or concerns.
[2017-04-18] MEDS ORDERED: Neostigmine Methylsulfate 1 MG/ML 5 ML Syringe ONE (14:09)
--- NOTE | 2017-04-18 14:26 | PCM.POSTAN ---
POST ANESTHESIA ASSESSMENT - MENTAL STATUS Mental Status: alert, oriented - VITAL SIGNS Pulse Rate: 100 SaO2: 98 Resp Rate: 10 Blood Pressure: 136/62 Temperature: 98.1 F - RESPIRATORY Respiratory Status: respiratory rate WNL, airway patent, O2 saturation stable, supplemental oxygen - CARDIOVASCULAR CV Status: pulse rate WNL, blood pressure stable - GASTROINTESTINAL GI Status: no symptoms - PAIN Pain Score: 3 - POST OP HYDRATION Hydration Status: adequate & stable
--- NOTE | 2017-04-18 15:02 | PCM.PN ---
- General Info Date of Service: 04/18/17 Functional Status: Reports: pain controlled, tolerating diet, ambulating, urinating. Denies: new symptoms - Review of Systems Systems Review Comment:: Doing well today. Denies abdominal pain. - Patient Data Vitals - most recent: Last Vital Signs Temp 98.1 F 04/18/17 14:26 Pulse 100 04/18/17 14:26 Resp 12 04/18/17 14:45 BP 131/81 04/18/17 14:45 Pulse Ox 96 04/18/17 14:54 Weight - most recent: 187 lb 12.8 oz I&O - last 24 hours: Intake & Output 04/17/17 04/18/17 04/18/17 22:59 06:59 14:59 Intake Total 660 700 Output Total 300 500 400 Balance -300 160 300 Lab Results last 24 hrs: Laboratory Results - last 24 hr 04/17/17 04/17/17 04/18/17 Range/Units 18:15 23:55 05:41 WBC 6.12 (3.98-10.04) K/mm3 RBC 4.23 (3.98-5.22) M/mm3 Hgb 13.5 (11.2-15.7) gm/L Hct 41.5 (34.1-44.9) % MCV 98.1 H (79.4-94.8) fl MCH 31.9 (25.6-32.2) pg MCHC 32.5 (32.2-35.5) g/dl RDW Std Deviation 57.6 H (36.4-46.3) fL Plt Count 123 L (182-369) K/mm3 MPV 11.2 (9.4-12.3) fl Neut % (Auto) 63.8 (34.0-71.1) % Lymph % (Auto) 19.0 L (19.3-51.7) % [place] % (Auto) 11.4 (4.7-12.5) % Eos % (Auto) 5.4 (0.7-5.8) Baso % (Auto) 0.2 (0.1-1.2) % Neut # (Auto) 3.91 (1.56-6.13) K/mm3 Lymph # (Auto) 1.16 L (1.18-3.74) K/mm3 [place] # (Auto) 0.70 H (0.24-0.36) K/mm3 Eos # (Auto) 0.33 (0.04-0.36) K/mm3 Baso # (Auto) 0.01 (0.01-0.08) K/mm3 PT (8.0-13.0) SECONDS INR Sodium (136-145) mEq/L Potassium (3.5-5.1) mEq/L Chloride (98-107) mEq/L Carbon Dioxide (21-32) mEq/L Anion Gap (5-15) BUN (7-18) mg/dL Creatinine (0.55-1.02) mg/dL Est Cr Clr Drug Dosing mL/min Estimated GFR (MDRD) (>60) mL/min BUN/Creatinine Ratio (14-18) Glucose (83-115) mg/dL POC Glucose 170 H 111 H (83-110) mg/dL Calcium (8.5-10.1) mg/dL Total Bilirubin (0.2-1.0) mg/dL AST (15-37) U/L ALT (14-59) U/L Alkaline Phosphatase (46-116) U/L Total Protein (6.4-8.2) g/dl Albumin (3.4-5.0) g/dl Globulin gm/dL Albumin/Globulin Ratio (1-2) 04/18/17 04/18/17 04/18/17 Range/Units 05:41 05:41 05:45 WBC (3.98-10.04) K/mm3 RBC (3.98-5.22) M/mm3 Hgb (11.2-15.7) gm/L Hct (34.1-44.9) % MCV (79.4-94.8) fl MCH (25.6-32.2) pg MCHC (32.2-35.5) g/dl RDW Std Deviation (36.4-46.3) fL Plt Count (182-369) K/mm3 MPV (9.4-12.3) fl Neut % (Auto) (34.0-71.1) % Lymph % (Auto) (19.3-51.7) % [place] % (Auto) (4.7-12.5) % Eos % (Auto) (0.7-5.8) Baso % (Auto) (0.1-1.2) % Neut # (Auto) (1.56-6.13) K/mm3 Lymph # (Auto) (1.18-3.74) K/mm3 [place] # (Auto) (0.24-0.36) K/mm3 Eos # (Auto) (0.04-0.36) K/mm3 Baso # (Auto) (0.01-0.08) K/mm3 PT 16.8 H (8.0-13.0) SECONDS INR 1.50 Sodium 142 (136-145) mEq/L Potassium 3.9 (3.5-5.1) mEq/L Chloride 108 H (98-107) mEq/L Carbon Dioxide 25 (21-32) mEq/L Anion Gap 12.9 (5-15) BUN 14 (7-18) mg/dL Creatinine 1.2 H (0.55-1.02) mg/dL Est Cr Clr Drug Dosing 27.30 mL/min Estimated GFR (MDRD) 43 (>60) mL/min BUN/Creatinine Ratio 11.7 L (14-18) Glucose 132 H (83-115) mg/dL POC Glucose 119 H (83-110) mg/dL Calcium 9.0 (8.5-10.1) mg/dL Total Bilirubin 1.2 H (0.2-1.0) mg/dL AST 29 (15-37) U/L ALT 32 (14-59) U/L Alkaline Phosphatase 84 (46-116) U/L Total Protein 6.0 L (6.4-8.2) g/dl Albumin 2.5 L (3.4-5.0) g/dl Globulin 3.5 gm/dL Albumin/Globulin Ratio 0.7 L (1-2) 04/18/17 04/18/17 Range/Units 12:53 14:28 WBC (3.98-10.04) K/mm3 RBC (3.98-5.22) M/mm3 Hgb (11.2-15.7) gm/L Hct (34.1-44.9) % MCV (79.4-94.8) fl MCH (25.6-32.2) pg MCHC (32.2-35.5) g/dl RDW Std Deviation (36.4-46.3) fL Plt Count (182-369) K/mm3 MPV (9.4-12.3) fl Neut % (Auto) (34.0-71.1) % Lymph % (Auto) (19.3-51.7) % [place] % (Auto) (4.7-12.5) % Eos % (Auto) (0.7-5.8) Baso % (Auto) (0.1-1.2) % Neut # (Auto) (1.56-6.13) K/mm3 Lymph # (Auto) (1.18-3.74) K/mm3 [place] # (Auto) (0.24-0.36) K/mm3 Eos # (Auto) (0.04-0.36) K/mm3 Baso # (Auto) (0.01-0.08) K/mm3 PT 15.4 H (8.0-13.0) SECONDS INR 1.38 Sodium (136-145) mEq/L Potassium (3.5-5.1) mEq/L Chloride (98-107) mEq/L Carbon Dioxide (21-32) mEq/L Anion Gap (5-15) BUN (7-18) mg/dL Creatinine (0.55-1.02) mg/dL Est Cr Clr Drug Dosing mL/min Estimated GFR (MDRD) (>60) mL/min BUN/Creatinine Ratio (14-18) Glucose (83-115) mg/dL POC Glucose 152 H (83-110) mg/dL Calcium (8.5-10.1) mg/dL Total Bilirubin (0.2-1.0) mg/dL AST (15-37) U/L ALT (14-59) U/L Alkaline Phosphatase (46-116) U/L Total Protein (6.4-8.2) g/dl Albumin (3.4-5.0) g/dl Globulin gm/dL Albumin/Globulin Ratio (1-2) Med Orders - Current: Current Medications Acetaminophen (Tylenol) 650 mg PO Q6H PRN PRN Reason: Pain Last Admin: 04/17/17 18:31 Dose: 650 mg Fentanyl (Sublimaze) 50 mcg IVPUSH Q5M PRN PRN Reason: Pain Stop: 04/18/17 18:00 Flunisolide (Nasalide Nasal [place]) 0 ml NASBOTH BID PRN PRN Reason: stufiness Furosemide (Lasix) 40 mg PO DAILY [facility] Last Admin: 04/18/17 08:56 Dose: Not Given Gabapentin (Neurontin) 300 mg PO BEDTIME [facility] Last Admin: 04/17/17 20:49 Dose: 300 mg Ceftriaxone Sodium 1 gm/ (Sodium Chloride) 100 mls @ 200 mls/hr IV Q24H [facility] Last Admin: 04/17/17 17:32 Dose: 200 mls/hr Sodium Chloride (Normal Saline) 1,000 mls @ 25 mls/hr IV ASDIRECTED [facility] Last Admin: 04/18/17 12:13 Dose: 25 mls/hr Losartan Potassium (Cozaar) 100 mg PO DAILY [facility] Last Admin: 04/18/17 08:55 Dose: Not Given Magnesium Oxide (Magnesium Oxide) 100 mg PO BID [facility] Last Admin: 04/18/17 08:56 Dose: Not Given Meperidine HCl (Demerol) 12.5 mg IVPUSH ONETIME PRN PRN Reason: shivering Stop: 04/19/17 13:21 Metoprolol Tartrate (Lopressor) 50 mg PO BID [facility] Last Admin: 04/18/17 08:53 Dose: 50 mg Ondansetron HCl (Zofran) 4 mg IVPUSH ONETIME PRN PRN Reason: Nausea/Vomiting Stop: 04/18/17 18:00 Pantoprazole [facility] ([facility]ix) [facility] Last Admin: 04/18/17 06:07 Dose: Not Given Betamethasone Dipropionate 0.05% Cream 0 each TOP DAILY PRN PRN Reason: Rash Potassium Chloride (Klor-Con 10) 10 meq PO DAILY [facility] Last Admin: 04/18/17 08:56 Dose: Not Given Simvastatin (Zocor) 20 mg PO BEDTIME [facility] Last Admin: 04/17/17 20:49 Dose: 20 mg Sodium Chloride (Saline Flush) 10 ml FLUSH ASDIRECTED PRN PRN Reason: Keep Vein Open Last Admin: 04/17/17 12:13 Dose: 10 ml Discontinued Medications Bupivacaine HCl/Epinephrine Bitart (Marcaine 0.5%/Epinephrine 1:200,000) Confirm Administered Dose 50 ml .ROUTE .STK-MED ONE Stop: 04/18/17 10:24 Last Admin: 04/18/17 13:34 Dose: 20 ml Diphenhydramine HCl (Benadryl) 25 mg IVPUSH ONETIME ONE Stop: 04/18/17 10:12 Last Admin: 04/18/17 10:15 Dose: 25 mg Ephedrine Sulfate (Ephedrine In Ns) Confirm Administered Dose 25 mg .ROUTE .STK- MED ONE Stop: 04/18/17 13:23 Fentanyl (Sublimaze) Confirm Administered Dose 250 mcg .ROUTE .STK-MED ONE Stop: 04/18/17 11:47 Glycopyrrolate () Confirm Administered Dose 1 mg .ROUTE .STK-MED ONE Stop: 04/18/17 14:10 Hydromorphone HCl (Dilaudid) 0.5 mg IVPUSH Q15M PRN PRN Reason: severe pain Stop: 04/18/17 14:06 Sodium Chloride (Normal Saline) 1,000 mls @ 100 mls/hr IV ONETIME ONE Stop: 04/17/17 21:52 Last Admin: 04/17/17 12:13 Dose: 100 mls/hr Piperacillin Sod/Tazobactam (Sod 2.25 gm/ Sodium Chloride) 100 mls @ 25 mls/hr IV NOW STA Stop: 04/17/17 17:39 Last Admin: 04/17/17 14:43 Dose: Not Given Piperacillin Sod/Tazobactam (Sod 2.25 gm/ Sodium Chloride) 100 mls @ 200 mls/ hr IV ONETIME ONE Stop: 04/17/17 14:50 Last Admin: 04/17/17 14:48 Dose: 100 mls/hr Sodium Chloride (Normal Saline) 1,000 mls @ 100 mls/hr IV ASDIRECTED [facility] Ceftriaxone Sodium 1 gm/ (Sodium Chloride) 100 mls @ 200 mls/hr IV Q24H [facility] Last Admin: 04/17/17 17:33 Dose: Not Given Lidocaine HCl (Xylocaine-Mpf 1%) Confirm Administered Dose 4 mls @ as directed .ROUTE .STK-MED ONE Stop: 04/18/17 11:47 Lidocaine/Epinephrine (Xylocaine 1% With Epinephrine 1:100,000) Confirm Administered Dose 20 ml .ROUTE .STK-MED ONE Stop: 04/18/17 10:24 Last Admin: 04/18/17 13:34 Dose: 20 ml Neostigmine Methylsulfate (Neostigmine) Confirm Administered Dose 5 mg .ROUTE .STK-MED ONE Stop: 04/18/17 14:10 Ondansetron HCl (Zofran) Confirm Administered Dose 4 mg .ROUTE .STK-MED ONE Stop: 04/18/17 11:47 Phytonadione (Aquamephyton) 10 mg PO ONETIME ONE Stop: 04/17/17 15:10 Last Admin: 04/17/17 19:50 Dose: Not Given Phytonadione (Aquamephyton) 2.5 mg PO ONETIME ONE Stop: 04/17/17 15:36 Last Admin: 04/17/17 15:40 Dose: 2.5 mg Phytonadione (Aquamephyton) 10 mg PO ONETIME ONE Stop: 04/18/17 09:16 Last Admin: 04/18/17 09:21 Dose: 10 mg Propofol (Diprivan 20 Ml) Confirm Administered Dose 200 mg .ROUTE .STK-MED ONE Stop: 04/18/17 11:47 Rocuronium Kamrar (Zemuron) Confirm Administered Dose 50 mg .ROUTE .STK-MED ONE Stop: 04/18/17 11:47 - Exam General: alert, oriented, cooperative, no acute distress HEENT: No: Scleral icterus Lungs: Clear to auscultation, Normal respiratory effort Cardiovascular: Regular Rate, Regular Rhythm Abdomen: soft, no tenderness, no distension Skin: warm, dry, intact Neurological: no new focal deficit Psy/Mental Status: alert, normal affect, normal mood - Problem List & Annotations (1) Acute cholecystitis due to biliary calculus SNOMED Code(s): 20928039075413 Code(s): K80.00 - CALCULUS OF GALLBLADDER W ACUTE CHOLECYST W/O OBSTRUCTION Status: Acute Current Visit: Yes (2) Cholelithiases SNOMED Code(s): 649789892 Code(s): K80.20 - CALCULUS OF GALLBLADDER W/O CHOLECYSTITIS W/O OBSTRUCTION Status: Acute Current Visit: Yes (3) Diabetes mellitus SNOMED Code(s): 97794553 Code(s): E11.9 - TYPE 2 DIABETES MELLITUS WITHOUT COMPLICATIONS Status: Chronic Current Visit: Yes Qualifiers: Diabetes mellitus type: type 2 (4) Rash SNOMED Code(s): 380472359, 978191521 Code(s): R21 - RASH AND OTHER NONSPECIFIC SKIN ERUPTION Status: Acute Current Visit: Yes (5) Leg pain SNOMED Code(s): 83376473 Code(s): M79.606 - PAIN IN LEG, UNSPECIFIED Status: Acute Current Visit: Yes Qualifiers: Laterality: left Qualified Code(s): M79.605 - Pain in left leg (6) Pacemaker SNOMED Code(s): 701577097, 671056707 Code(s): Z95.0 - PRESENCE OF CARDIAC PACEMAKER Status: Chronic Current Visit: Yes (7) Atrial fibrillation SNOMED Code(s): 05392044 Code(s): I48.91 - UNSPECIFIED ATRIAL FIBRILLATION Status: Chronic Current Visit: Yes (8) Tachy-oh syndrome SNOMED Code(s): 58501437 Code(s): I49.5 - SICK SINUS SYNDROME Status: Chronic Current Visit: Yes - Problem List Review Problem List Initiated/Reviewed/Updated: Yes - My Orders Last 24 Hours: My Active Orders 04/17/17 17:51 Acetaminophen [Tylenol] 650 mg PO Q6H PRN 04/17/17 21:00 Magnesium Oxide 100 mg PO BID 04/18/17 Schedule Procedure [COMM] Routine - Assessment Assessment:: 81 yo woman with acute cholecystitis/ cholelithiases - Plan Plan:: 81 yo with acute cholecystitis 2/2 cholelithiases, rash on bilateral knees and left leg pain, ? persistent UTI - patient was taking abx previously prescribed incorrectly Also, w/ PMH of Afib, now w/ PCM Tachy-oh syndrome HTN Hearing loss DM 2 - controlled, last A1C 6.7% Arthritis Proceed to OR today for laparoscopic cholecystectomy NPO currently INR 1.5, will give additional 10 mg Vitamin K - ordered this AM at 0800 ? No results from urine culture from ER available yet; Urine culture pending, UTI may persist as had been taking too low a dose of Macrobid at home Rash is still present on bilateral knees Rec'd Zosyn x 1 in ED yesterday, Rocephin 1gm last noc
[2017-04-18] MEDS: Acetaminophen 325 MG Tab PO PRN ×2 (15:38→21:52)
[2017-04-18] MEDS: cefTRIAXone 1 GM in Sodium Chloride 0.9% 100 ML IV SCH (17:19)
[2017-04-18] MEDS: BETAMETHASONE DIPROPIONATE 0.05% TOP PRN (17:48)
[2017-04-18] MEDS: Gabapentin 300 MG Cap PO SCH (20:25)
[2017-04-18] MEDS: Simvastatin 20 MG Tab PO SCH (20:25)
[2017-04-19] MEDS: Pantoprazole 40 MG Tab.CR PO SCH (06:06)
[2017-04-19] MEDS: Acetaminophen 325 MG Tab PO PRN (06:09)
[2017-04-19] MEDS: Magnesium Oxide 400 MG Tab PO SCH (09:15)
[2017-04-19] MEDS: Losartan 100 MG Tab PO SCH (09:15)
[2017-04-19] MEDS: Furosemide 40 MG Tab PO SCH (09:15)
[2017-04-19] MEDS: Potassium Chloride 10 MEQ Tab.ER PO SCH (09:15)
[2017-04-19] MEDS: Metoprolol Tartrate 50 MG Tab PO SCH (09:17)
[2017-04-19 09:18] VITALS: BP 129/47
--- NOTE | 2017-04-19 09:40 | PCM48HPAN ---
Post Anesthesia Note - EVALUATION WITHIN 48HRS OF ANESTHETIC Vital Signs in Normal Range: Yes Patient Participated in Evaluation: Yes Respiratory Function Stable: Yes Airway Patent: Yes Cardiovascular Function Stable: Yes Hydration Status Stable: Yes Pain Control Satisfactory: Yes Nausea and Vomiting Control Satisfactory: Yes Mental Status Recovered: Yes (just finished showering. miminal pain today. no nausea)
[2017-04-19] MEDS: BETAMETHASONE DIPROPIONATE 0.05% TOP PRN (09:45)
--- NOTE | 2017-04-19 11:17 | PCM.DCSUM1 ---
Discharge Summary - Hospital Course Free Text/Narrative:: The patient is a 81-year-old woman who I admitted on April 17 for epigastric abdominal pain. She had a known history of cholelithiasis and we had planned for laparoscopic cholecystectomy in the near future. She was admitted on the presumptive diagnosis of cholecystitis. She was taken to the operating room on April 18 for laparoscopic cholecystectomy and was found to have acute cholecystitis with cholelithiasis. Laparoscopic cholecystectomy was performed successfully without complication. Patient was kept overnight for observation, the following day she was tolerating a regular diet, she had no epigastric pain , her incisions were clean, dry, intact with Dermabond in place, and she was deemed stable for discharge home. Verbal and written instructions were provided to the patient. She may restart her Coumadin on Sunday evening. She is to have her INR rechecked at the [facility] on Sunday, April 24. She is to call me over the weekend for any questions or concerns. She may resume her Celebrex. She is not to lift greater than 20 pounds for the next 4 weeks. She is not to drive while taking narcotic pain medications. She is not to push, pull, or strain. She may shower , she is not to submerge her wounds. - Discharge Data Discharge Date: 04/19/17 Discharge Disposition: Home, Self-Care 01 Condition: Good - Discharge Diagnosis/Problem(s) (1) Acute cholecystitis due to biliary calculus SNOMED Code(s): 94351333802598 ICD Code: K80.00 - CALCULUS OF GALLBLADDER W ACUTE CHOLECYST W/O OBSTRUCTION Status: Resolved (2) Cholelithiases SNOMED Code(s): 545400048 ICD Code: K80.20 - CALCULUS OF GALLBLADDER W/O CHOLECYSTITIS W/O OBSTRUCTION Status: Resolved (3) Diabetes mellitus SNOMED Code(s): 32968674 ICD Code: E11.9 - TYPE 2 DIABETES MELLITUS WITHOUT COMPLICATIONS Status: Chronic Qualifiers: Diabetes mellitus type: type 2 (4) Rash SNOMED Code(s): 247296464, 008716357 ICD Code: R21 - RASH AND OTHER NONSPECIFIC SKIN ERUPTION Status: Acute (5) Leg pain SNOMED Code(s): 62933846 ICD Code: M79.606 - PAIN IN LEG, UNSPECIFIED Status: Acute Qualifiers: Laterality: left Qualified Code(s): M79.605 - Pain in left leg (6) Pacemaker SNOMED Code(s): 972474239, 512673236 ICD Code: Z95.0 - PRESENCE OF CARDIAC PACEMAKER Status: Chronic (7) Atrial fibrillation SNOMED Code(s): 25491267 ICD Code: I48.91 - UNSPECIFIED ATRIAL FIBRILLATION Status: Chronic (8) Tachy-oh syndrome SNOMED Code(s): 33166934 ICD Code: I49.5 - SICK SINUS SYNDROME Status: Chronic - Patient Summary/Data Operative Procedure(s) Performed: Laparoscopic cholecystectomy - Patient Instructions Diet: Usual Diet as Tolerated, Diabetic Diet Activity: Cough & Deep Breathe, No Lifting Over 20 Pounds, No Strenuous Activities Driving: Do Not Drive (while on narcotic pain medication) Showering/Bathing: May Shower, No Tub Bathing/Swimming Notify Provider of: Fever, Increased Pain, Swelling and Redness, Drainage, Nausea and/or Vomiting - Discharge Plan Prescriptions/Med Rec: Acetaminophen/oxyCODONE [Percocet 325-5 MG] 1 - 2 tab PO Q4H #30 tablet Ondansetron [Zofran ODT] 4 mg PO Q6H PRN #10 tab.dis PRN Reason: Nausea Sennosides/Docusate Sodium [Senna-S] 2 tab PO BID #30 tablet Home Medications: Home Meds Acetaminophen [Tylenol Extra Strength] 500 mg PO BID 07/19/16 [History] Betamethasone Dipropionate [Diprosone 0.05% Crm] 1 applic TOP DAILY PRN [History] Celecoxib [CeleBREX] 200 mg PO DAILY 07/19/16 [History] Denosumab [Prolia] 60 mg SUBCUT ASDIRECTED 07/19/16 [History] Fexofenadine [Sherin] 180 mg PO DAILY PRN 07/19/16 [History] Fish Oil/[place]-3 Fatty Acids [Fish Oil 1,000 MG] 1 cap PO BID 07/19/16 [History] Furosemide 1 tab PO DAILY 07/19/16 [History] Gabapentin [Neurontin] 300 mg PO BEDTIME 07/19/16 [History] Glimepiride 2 mg PO DAILY 07/19/16 [History] Gluc/MSM/C/[place]/Justina [Joint Support Complex Softgel] 1 tab PO DAILY [History] Losartan [Cozaar] 1 tab PO DAILY 07/19/16 [History] Metoprolol Tartrate 50 mg PO BID 07/19/16 [History] Omeprazole 20 mg PO BIDAC 07/19/16 [History] Potassium Chloride [Klor-Con 10] 10 meq PO DAILY 07/19/16 [History] Pravastatin [Pravachol] 40 mg PO BEDTIME 07/19/16 [History] Triamcinolone Acetonide [Nasacort] 1 spray NASBOTH DAILY PRN 07/19/16 [History] Magnesium 100 mg PO BID 04/17/17 [History] Acetaminophen/oxyCODONE [Percocet 325-5 MG] 1 - 2 tab PO Q4H #30 tablet [Rx] Ondansetron [Zofran ODT] 4 mg PO Q6H PRN #10 tab.dis 04/18/17 [Rx] Sennosides/Docusate Sodium [Senna-S] 2 tab PO BID #30 tablet 04/18/17 [Rx] Patient Handouts: Laparoscopic Cholecystectomy, Laparoscopic Cholecystectomy, Care After, [id number] Referrals: Henri Jung MD [Primary Care Provider] - 04/24/17 10:30 am Bárbara Hernandez MD [Physician] - 05/04/17 10:40 am (2 weeks ) - Discharge Summary/Plan Comment DC Time >30 min.: No - Patient Data Vitals - Most Recent: Last Vital Signs Temp 97.2 F 04/19/17 08:17 Pulse 82 04/19/17 09:17 Resp 12 04/19/17 08:17 BP 129/47 L 04/19/17 09:17 Pulse Ox 93 L 04/19/17 08:17 Weight - Most Recent: 190 lb 4.8 oz I&O - Last 24 hours: Intake & Output 04/18/17 04/19/17 04/19/17 22:59 06:59 14:59 Intake Total 837 600 320 Output Total 850 950 300 Balance -13 -350 20 Lab Results - Last 24 hrs: Laboratory Results - last 24 hr 04/18/17 04/18/17 04/18/17 Range/Units 12:53 14:28 18:07 PT 15.4 H (8.0-13.0) SECONDS INR 1.38 POC Glucose 152 H 150 H (83-110) mg/dL 04/19/17 04/19/17 Range/Units 00:14 05:57 PT (8.0-13.0) SECONDS INR POC Glucose 129 H 121 H (83-110) mg/dL Med Orders - Current: Current Medications Acetaminophen (Tylenol) 650 mg PO Q6H PRN PRN Reason: Pain Last Admin: 04/19/17 06:09 Dose: 650 mg Flunisolide (Nasalide Nasal [place]) 0 ml NASBOTH BID PRN PRN Reason: stufiness Furosemide (Lasix) 40 mg PO DAILY COUNT INCLUDES THE [facility] Last Admin: 04/19/17 09:15 Dose: 40 mg Gabapentin (Neurontin) 300 mg PO BEDTIME COUNT INCLUDES THE [facility] Last Admin: 04/18/17 20:25 Dose: 300 mg Ceftriaxone Sodium 1 gm/ (Sodium Chloride) 100 mls @ 200 mls/hr IV Q24H COUNT INCLUDES THE [facility] Last Admin: 04/18/17 17:19 Dose: 200 mls/hr Losartan Potassium (Cozaar) 100 mg PO DAILY COUNT INCLUDES THE [facility] Last Admin: 04/19/17 09:15 Dose: 100 mg Magnesium Oxide (Magnesium Oxide) 100 mg PO BID COUNT INCLUDES THE [facility] Last Admin: 04/19/17 09:15 Dose: 100 mg Meperidine HCl (Demerol) 12.5 mg IVPUSH ONETIME PRN PRN Reason: shivering Stop: 04/19/17 13:21 Metoprolol Tartrate (Lopressor) 50 mg PO BID COUNT INCLUDES THE [facility] Last Admin: 04/19/17 09:17 Dose: 50 mg Pantoprazole Sodium (Protonix) 40 mg PO BIDAC COUNT INCLUDES THE [facility] Last Admin: 04/19/17 06:06 Dose: 40 mg Betamethasone Dipropionate 0.05% Cream 0 each TOP DAILY PRN PRN Reason: Rash Last Admin: 04/19/17 09:45 Dose: 1 each Potassium Chloride (Klor-Con 10) 10 meq PO DAILY COUNT INCLUDES THE [facility] Last Admin: 04/19/17 09:15 Dose: 10 meq Simvastatin (Zocor) 20 mg PO BEDTIME COUNT INCLUDES THE [facility] Last Admin: 04/18/17 20:25 Dose: 20 mg Sodium Chloride (Saline Flush) 10 ml FLUSH ASDIRECTED PRN PRN Reason: Keep Vein Open Last Admin: 04/17/17 12:13 Dose: 10 ml Discontinued Medications Bupivacaine HCl/Epinephrine Bitart (Marcaine 0.5%/Epinephrine 1:200,000) Confirm Administered Dose 50 ml .ROUTE .STK-MED ONE Stop: 04/18/17 10:24 Last Admin: 04/18/17 13:34 Dose: 20 ml Diphenhydramine HCl (Benadryl) 25 mg IVPUSH ONETIME ONE Stop: 04/18/17 10:12 Last Admin: 04/18/17 10:15 Dose: 25 mg Ephedrine Sulfate (Ephedrine In Ns) Confirm Administered Dose 25 mg .ROUTE .STK- MED ONE Stop: 04/18/17 13:23 Fentanyl (Sublimaze) Confirm Administered Dose 250 mcg .ROUTE .STK-MED ONE Stop: 04/18/17 11:47 Fentanyl (Sublimaze) 50 mcg IVPUSH Q5M PRN PRN Reason: Pain Stop: 04/18/17 18:00 Glycopyrrolate () Confirm Administered Dose 1 mg .ROUTE .STK-MED ONE Stop: 04/18/17 14:10 Hydromorphone HCl (Dilaudid) 0.5 mg IVPUSH Q15M PRN PRN Reason: severe pain Stop: 04/18/17 14:06 Sodium Chloride (Normal Saline) 1,000 mls @ 100 mls/hr IV ONETIME ONE Stop: 04/17/17 21:52 Last Admin: 04/17/17 12:13 Dose: 100 mls/hr Piperacillin Sod/Tazobactam (Sod 2.25 gm/ Sodium Chloride) 100 mls @ 25 mls/hr IV NOW STA Stop: 04/17/17 17:39 Last Admin: 04/17/17 14:43 Dose: Not Given Piperacillin Sod/Tazobactam (Sod 2.25 gm/ Sodium Chloride) 100 mls @ 200 mls/ hr IV ONETIME ONE Stop: 04/17/17 14:50 Last Admin: 04/17/17 14:48 Dose: 100 mls/hr Sodium Chloride (Normal Saline) 1,000 mls @ 100 mls/hr IV ASDIRECTED CHARLINE Ceftriaxone Sodium 1 gm/ (Sodium Chloride) 100 mls @ 200 mls/hr IV Q24H CHARLINE Last Admin: 04/17/17 17:33 Dose: Not Given Sodium Chloride (Normal Saline) 1,000 mls @ 25 mls/hr IV ASDIRECTED CHARLINE Last Admin: 04/18/17 12:13 Dose: 25 mls/hr Lidocaine HCl (Xylocaine-Mpf 1%) Confirm Administered Dose 4 mls @ as directed .ROUTE .STK-MED ONE Stop: 04/18/17 11:47 Lidocaine/Epinephrine (Xylocaine 1% With Epinephrine 1:100,000) Confirm Administered Dose 20 ml .ROUTE .STK-MED ONE Stop: 04/18/17 10:24 Last Admin: 04/18/17 13:34 Dose: 20 ml Neostigmine Methylsulfate (Neostigmine) Confirm Administered Dose 5 mg .ROUTE .STK-MED ONE Stop: 04/18/17 14:10 Ondansetron HCl (Zofran) Confirm Administered Dose 4 mg .ROUTE .ST-MED ONE Stop: 04/18/17 11:47 Ondansetron HCl (Zofran) 4 mg IVPUSH ONETIME PRN PRN Reason: Nausea/Vomiting Stop: 04/18/17 18:00 Phytonadione (Aquamephyton) 10 mg PO ONETIME ONE Stop: 04/17/17 15:10 Last Admin: 04/17/17 19:50 Dose: Not Given Phytonadione (Aquamephyton) 2.5 mg PO ONETIME ONE Stop: 04/17/17 15:36 Last Admin: 04/17/17 15:40 Dose: 2.5 mg Phytonadione (Aquamephyton) 10 mg PO ONETIME ONE Stop: 04/18/17 09:16 Last Admin: 04/18/17 09:21 Dose: 10 mg Propofol (Diprivan 20 Ml) Confirm Administered Dose 200 mg .ROUTE .STK-MED ONE Stop: 04/18/17 11:47 Rocuronium [place] (Zemuron) Confirm Administered Dose 50 mg .ROUTE .ST-MED ONE Stop: 04/18/17 11:47 *Q Meaningful Use (DIS) - VTE *Q VTE Criteria *Q: - Stroke *Q Stroke Criteria *Q: - AMI *Q AMI Criteria *Q:
== END 2017-04-19 12:21 | disposition home or self-care (01) | DRG 419 ==
LOC: JD.ED 11:03 → UNDOADMIN 15:32 → JD.MS 15:32 → UNDOADMIN 17:43 → JD.MS 17:43 → UNDODISIN 04-19 12:21
PROVIDERS: ADMIT Surgery; ATTEND Surgery
PROC: 0FT44ZZ Resection of Gallbladder, Percutaneous Endoscopic Approach (ICD-10-PCS; principal; 2017-04-18)
DX: K80.00 Calculus of gallbladder with acute cholecystitis without obstruction (principal); N39.0 Urinary tract infection, site not specified; M79.662 Pain in left lower leg; R51 Headache; K76.0 Fatty (change of) liver, not elsewhere classified; K29.70 Gastritis, unspecified, without bleeding; K57.30 Diverticulosis of large intestine without perforation or abscess without bleeding; E11.9 Type 2 diabetes mellitus without complications; I10 Essential (primary) hypertension; R21 Rash and other nonspecific skin eruption; K21.9 Gastro-esophageal reflux disease without esophagitis; M79.605 Pain in left leg; Z95.0 Presence of cardiac pacemaker; Z79.01 Long term (current) use of anticoagulants; I48.91 Unspecified atrial fibrillation; I49.5 Sick sinus syndrome; Z79.899 Other long term (current) drug therapy; Z88.8 Allergy status to other drugs, medicaments and biological substances
CPT/HCPCS: 36415; 71010; 76705; 80053; 81001; 82248; 82977; 83605; 83690; 83880; 84484; 85025; 85610; 86140; 87040 ×2; 87086; 93005; 93971; 96361; 96365; 99285; A9270; J0696; J2543; J7030 ×2; J7040; J7050; 00790; 82962; 88304; 88304-26; 99284; J1200; J2405; J2704; J2710; J3010

== ENCOUNTER 2018-01-28 07:37 | Day surgery (SDC) | payer MEDICARE, BC ==
[~2018-01-28 07:37] MED LIST: Lactated Ringers 1,000 ML IV SCH; Lidocaine 1%/Sod Bicarbonate in NS 8.4% 1 ML Syringe IDERM PRN; Sodium Chloride 0.9% 10 ML Syringe FLUSH PRN
--- NOTE | 2018-01-28 07:40 | PCM.PREANE ---
Preanesthetic Assessment - Procedure Proposed Procedure: EGD/Colonoscopy - Anesthesia/Transfusion/Family Hx Anesthesia History: Prior Anesthesia Without Reaction Family History of Anesthesia Reaction: No Transfusion History: No Prior Transfusion(s) Intubation History: Unknown - Review of Systems General: Other (Getting over a cold from a couple weeks ago. Feels good today. ) Pulmonary: No Symptoms Cardiovascular: No Symptoms, Other (Pacemaker with tachy oh syndrome/ chronic ) Gastrointestinal: Melena Neurological: Other (Hard of Hearing) Other: Reports: Easy Bruising (Chronic anticoagulation), Diabetes - Physical Assessment NPO Status Date: 01/28/18 NPO Status Time: 06:30 (Sip of water with medications) Pulse: 78 O2 Sat by Pulse Oximetry: 98 Respiratory Rate: 18 Blood Pressure: 158/64 Temperature: 36.9 C Weight: 86 kg ASA Class: 3 Mental Status: Alert & Oriented x3 Airway Class: Mallampati = 1 Dentition: Reports: Normal Dentition Thyro-Mental Finger Breadths: 3 Mouth Opening Finger Breadths: 3 ROM/Head Extension: Full Lungs: Clear to Auscultation, Normal Respiratory Effort Cardiovascular: Irregular Rhythm (Chronic Atrial Fibrillation) - Imaging/EKG Impressions: Atrial Paced HR 70 with LBBB. - Allergies Allergies/Adverse Reactions: Allergies Allergy/AdvReac Type Severity Reaction Status Date / Time acetaminophen AdvReac Dizziness Verified 01/27/18 15:40 [From Darvocet-N] imipramine HCl AdvReac Fatigue Verified 01/27/18 15:40 [From Tofranil] propoxyphene napsylate AdvReac Dizziness Verified 01/27/18 15:40 [From Darvocet-N] pentapiperium methylsulfate Allergy Cannot Uncoded 01/27/18 15:40 Remember tussin Allergy Cannot Uncoded 01/27/18 15:40 Remember - Anesthesia Plan Beta Rin: Metoprolol Med Last Dose Date: 01/28/18 Med Last Dose Time: 06:30 - Acknowledgements Anesthesia Type Planned: MAC Pt an Appropriate Candidate for the Planned Anesthesia: Yes Alternatives and Risks of Anesthesia Discussed w Pt/Guardian: Yes Pt/Guardian Understands and Agrees with Anesthesia Plan: Yes PreAnesthesia Questionnaire HEENT History: Reports: Cataract, Hard of Hearing, Impaired Vision Cardiovascular History: Reports: Afib, Hypertension, Pacemaker Other Cardiovascular History: tachy/oh syndrome Respiratory History: Reports: None Gastrointestinal History: Reports: Cholelithiasis, Colon Polyp, GERD, Hemorrhoids Other Gastrointestinal History: nodular liver Genitourinary History: Reports: Urinary Incontinence, UTI, Recurrent SOCIOLOGY INSTRUCTOR History: Reports: None Musculoskeletal History: Reports: Arthritis, Fracture Other Musculoskeletal History: right tardy ulnar nerve palsy, ankle fracture bilaterally, lichen planus, left foot stress fracture Neurological History: Reports: None Psychiatric History: Reports: None Endocrine/Metabolic History: Reports: Diabetes, Type II, Obesity/BMI 30+ Hematologic History: Reports: Anemia Immunologic History: Reports: None Oncologic (Cancer) History: Reports: None Dermatologic History: Reports: Other (See Below) Other Dermatologic History: dry itchy skin - Past Surgical History HEENT Surgical History: Reports: Cataract Surgery, Myringotomy w Tube(s) Cardiovascular Surgical History: Reports: Pacer Respiratory Surgical History: Reports: None GI Surgical History: Reports: Appendectomy, Cholecystectomy, Colonoscopy, EGD Female Surgical History: Reports: Breast Biopsy Endocrine Surgical History: Reports: None Neurological Surgical History: Reports: None Other Neurological Surgeries/Procedures: surgery for pinched nerves Musculoskeletal Surgical History: Reports: Carpal Tunnel, Joint Replacement, Knee Replacement, ORIF, Other (See Below) Other Musculoskeletal Surgeries/Procedures:: pins and screws in left ankle Oncologic Surgical History: Reports: Biopsy of Breast - SUBSTANCE USE Smoking Status *Q: Never Smoker Tobacco Use Within Last Twelve Months: No Second Hand Smoke Exposure: No Days Per Week of Alcohol Use: 0 Recreational Drug Use History: No - HOME MEDS Home Medications: Home Meds Acetaminophen [Tylenol Extra Strength] 500 mg PO BID 07/19/16 [History] Betamethasone Dipropionate [Diprosone 0.05% Crm] 1 applic TOP DAILY PRN [History] Celecoxib [CeleBREX] 200 mg PO DAILY 07/19/16 [History] Denosumab [Prolia] 60 mg SUBCUT ASDIRECTED 07/19/16 [History] Fexofenadine [Sherin] 180 mg PO DAILY PRN 07/19/16 [History] Furosemide 40 mg PO DAILY 07/19/16 [History] Gabapentin [Neurontin] 300 mg PO BEDTIME 07/19/16 [History] Glimepiride 2 mg PO DAILY 07/19/16 [History] Losartan [Cozaar] 100 mg PO DAILY 07/19/16 [History] Metoprolol Tartrate 50 mg PO BID 07/19/16 [History] Omeprazole 20 mg PO BID 07/19/16 [History] Potassium Chloride [Klor-Con 10] 10 meq PO DAILY 07/19/16 [History] Pravastatin [Pravachol] 40 mg PO BEDTIME 07/19/16 [History] Magnesium 100 mg PO BID 04/17/17 [History] Sennosides/Docusate Sodium [Senna-S] 2 tab PO BID #30 tablet 04/18/17 [Rx] Aspirin 81 mg PO DAILY 01/27/18 [History] Hydrocortisone [Anusol-HC] 1 dose RECTAL ASDIRECTED PRN 01/27/18 [History] Methylcellulose [Fiber] 500 mg PO DAILY 01/27/18 [History] Warfarin [Coumadin] 5 mg PO DAILY 01/27/18 [History] - CURRENT (IN HOUSE) MEDS Current Meds: Current Medications Lactated Ringer's (Ringers, Lactated) 1,000 mls @ 125 mls/hr IV ASDIRECTED CHARLINE Stop: 01/28/18 23:00 Lidocaine/Sodium Bicarbonate (Buffered Lidocaine 1% In Ns 8.4%) 0.25 ml IDERM ONETIME PRN PRN Reason: Prior to IV Start Stop: 01/28/18 18:00 Sodium Chloride (Saline Flush) 10 ml FLUSH ASDIRECTED PRN PRN Reason: Keep Vein Open Stop: 01/28/18 18:00
[2018-01-28] MEDS ORDERED: fentaNYL 100 MCG/2 ML SDV ONE (07:53)
[2018-01-28] MEDS ORDERED: Propofol 200 MG/20 ML SDV ONE ×4 (07:53→09:21)
[2018-01-28] MEDS ORDERED: Lidocaine 1% 6 ML ONE (08:34)
[2018-01-28] MEDS ORDERED: Ondansetron 4 MG/2 ML SDV ONE (09:06)
--- NOTE | 2018-01-28 09:36 | PCM48HPAN ---
Post Anesthesia Note - EVALUATION WITHIN 48HRS OF ANESTHETIC Vital Signs in Normal Range: Yes Patient Participated in Evaluation: Yes Respiratory Function Stable: Yes Airway Patent: Yes Cardiovascular Function Stable: Yes Hydration Status Stable: Yes Pain Control Satisfactory: Yes Nausea and Vomiting Control Satisfactory: Yes Mental Status Recovered: Yes
--- NOTE | 2018-01-28 09:47 | PCM.OPNOTE ---
- General Post-Op/Procedure Note Date of Surgery/Procedure: 01/28/18 Operative Procedure(s): egd with bx and polypectomy and colonoscopy to cecum Pre Op Diagnosis: anemia Post-Op Diagnosis: Same Anesthesia Technique: MAC Primary Surgeon: Kory Florentino EBL in mLs: 10 Complications: None Condition: Good
[2018-01-28 10:33] VITALS: BP 149/71
--- NOTE | 2018-01-28 20:34 | OR ---
DATE OF OPERATION: 01/28/2018 SURGEON: Kory Florentino MD PREOPERATIVE DIAGNOSIS: Anemia. POSTOPERATIVE DIAGNOSIS: Anemia. OPERATION PERFORMED: Colonoscopy to cecum. FINDINGS: Multiple diverticulum scattered throughout the colon, some mild internal hemorrhoids. There were no angiodysplasias, neoplasias, large tumor masses, or ulcerations noted. DESCRIPTION OF PROCEDURE: The patient was taken to the endoscopy room and having been connected to monitoring equipment, having been given IV sedation for upper GI endoscopy. This continued for colonoscopy. Placed in the left lateral position. Perianal area showed hemorrhoidal tags. No fissures were noted. Rectal exam showed good sphincter tone. A video Olympus colonoscope was then introduced into the rectum and threaded up without problem to the cecum, where the appendicular orifice ileocecal valve was noted. Prep was excellent. [place] Cleansing score grade A, and the scope was slowly withdrawn showing the cecum, ascending colon, transverse colon, descending colon, sigmoid colon, and rectum. Retroflexed view was done. The patient tolerated the procedure. The above findings were noted and the patient was sent to recovery room in a stable condition. ANESTHESIA: ESTIMATED BLOOD LOSS: MMODAL /[id number]
--- NOTE | 2018-01-30 07:28 | OR ---
DATE OF OPERATION: 01/28/2018 SURGEON: Kory Florentino MD PREOPERATIVE DIAGNOSIS: Anemia. POSTOPERATIVE DIAGNOSIS: Anemia. OPERATION PERFORMED: Esophagogastroduodenoscopy with polypectomy and biopsy of the antrum. FINDINGS: Necrotic gastric polyp, which was removed by cautery snare and base secured with clips. Number of fundic polyps, some of which looked necrotic and looked like they had bled. It was scattered throughout the fundus of the stomach. The second portion of the duodenum, duodenal bulb, pyloric channel, and antrum were unremarkable and the fundus showed multiple fundic gland polyps, some necrotic polyps, which were removed by cautery snare. The antrum looked like it had some chronic gastritis which was biopsied. A small sliding hiatal hernia was noted. GE junction unremarkable. Rest of the esophagus was negative. ANESTHESIA: Done under IV sedation. ESTIMATED BLOOD LOSS: Approximately 10 mL. DESCRIPTION OF PROCEDURE: The patient was taken to the endoscopy room, placed in a supine position, connected to monitoring equipment and given IV sedation. A bite-block was inserted, placed in left lateral position. A video Olympus gastroscope was placed in the posterior oropharynx, under direct vision, threaded past the cricopharyngeus under direct vision past the cricopharyngeus, down the esophagus into the stomach. Stomach was insufflated, and the scope passed through the pylorus to the second portion of the duodenum. It was slowly withdrawn showing a normal second portion of the duodenum, duodenal bulb, pyloric channel, antrum showed some stunting of the gastric mucosa and this was biopsied. J-maneuver showed multiple areas of fundic gland polyps, and some polyps were necrotic. One in the mid antrum was chosen and this was lassoed with cautery snare and removed, and then the base removed again. These were both retrieved and sent to pathology. Clips were placed on the surgical site and there was about 10 mL of blood loss. J-maneuver was performed in analysis process. Scope was withdrawn to the GE junction unremarkable. Rest of the esophagus was normal. The patient tolerated the procedure. Specimens were collected and sent to pathology, and IV sedation continued for colonoscopy. MMODAL /[id number]
== END 2018-01-28 10:57 | disposition home or self-care (01) ==
LOC: JD.SDS 07:37
PROVIDERS: ATTEND Surgery
DX: D64.9 Anemia, unspecified (principal); K31.7 Polyp of stomach and duodenum; K57.30 Diverticulosis of large intestine without perforation or abscess without bleeding; K64.8 Other hemorrhoids; E11.9 Type 2 diabetes mellitus without complications; I10 Essential (primary) hypertension; H91.90 Unspecified hearing loss, unspecified ear; I48.2 Chronic atrial fibrillation; Z79.01 Long term (current) use of anticoagulants; Z79.82 Long term (current) use of aspirin; Z79.84 Long term (current) use of oral hypoglycemic drugs; Z79.899 Other long term (current) drug therapy; Z88.8 Allergy status to other drugs, medicaments and biological substances
CPT/HCPCS: 36415; 43239; 43251; 45378; 85610; 88305; J2405; J3010; J7120; 00813; J2001; J2704

== ENCOUNTER → 2020-12-20 | Day surgery (SDC) | payer MEDICARE, BC ==
[~2020-12-20] MED LIST changes: +Lidocaine 1% 0 ML ONE; +Propofol 200 MG/20 ML SDV ONE
--- NOTE | 2020-12-20 07:39 | PCM.PREANE ---
Preanesthetic Assessment - Anesthesia/Transfusion/Family Hx Anesthesia History: Prior Anesthesia Without Reaction Family History of Anesthesia Reaction: No Transfusion History: No Prior Transfusion(s) Intubation History: Unknown - Review of Systems General: No Symptoms Pulmonary: No Symptoms Cardiovascular: No Symptoms Gastrointestinal: No Symptoms Neurological: No Symptoms Other: Reports: None, Diabetes (BS 162 @ 0749) - Physical Assessment ASA Class: 3 Mental Status: Alert & Oriented x3 Airway Class: Mallampati = 1 Dentition: Reports: Normal Dentition Thyro-Mental Finger Breadths: 3 Mouth Opening Finger Breadths: 3 ROM/Head Extension: Full Lungs: Clear to Auscultation, Normal Respiratory Effort Cardiovascular: Regular Rate, Regular Rhythm - Allergies Allergies/Adverse Reactions: Allergies Allergy/AdvReac Type Severity Reaction Status Date / Time adhesive Allergy Cannot Verified 12/19/20 09:48 Remember imipramine [From Tofranil] Allergy Cannot Verified 12/19/20 09:48 Remember propoxyphene [From Darvon] Allergy Cannot Verified 12/19/20 09:48 Remember tacrolimus Allergy Cannot Verified 12/19/20 09:48 Remember pentapiperium methylsulfate Allergy Cannot Uncoded 12/19/20 09:48 Remember tussin Allergy Cannot Uncoded 12/19/20 09:48 Remember - Anesthesia Plan Beta Rin: Metoprolol Med Last Dose Date: 12/20/20 Med Last Dose Time: 06:00 - Acknowledgements Anesthesia Type Planned: MAC Pt an Appropriate Candidate for the Planned Anesthesia: Yes Alternatives and Risks of Anesthesia Discussed w Pt/Guardian: Yes Pt/Guardian Understands and Agrees with Anesthesia Plan: Yes PreAnesthesia Questionnaire HEENT History: Reports: Allergic Rhinitis, Cataract, Hard of Hearing, Impaired Vision Cardiovascular History: Reports: Afib, Heart Failure, Hypertension, Pacemaker, SOB on Exertion Other Cardiovascular History: tachy/oh syndrome, SSS, chest pain, leg edema Respiratory History: Reports: None Gastrointestinal History: Reports: Cholelithiasis, Colon Polyp, GERD, Hemorrhoids, Other (See Below) Other Gastrointestinal History: nodular liver, constipation Genitourinary History: Reports: Renal Disease, Urinary Incontinence, UTI, Rec urrent [employer] History: Reports: Musculoskeletal History: Reports: Arthritis, Back Pain, Chronic, Fracture Other Musculoskeletal History: right ulnar nerve palsy, ankle fracture bilaterally, lichen planus, left foot stress fracture Neurological History: Reports: Other (See Below) Other Neuro History: lumbar degenerative disc disease Psychiatric History: Reports: None Endocrine/Metabolic History: Reports: Diabetes, Type II, Hyperparathyroidism, Obesity/BMI 30+ Hematologic History: Reports: Anemia Immunologic History: Reports: None Oncologic (Cancer) History: Reports: Breast Dermatologic History: Reports: Other (See Below) Other Dermatologic History: dry itchy skin - Infectious Disease History Infectious Disease History: Reports: None - Past Surgical History HEENT Surgical History: Reports: Cataract Surgery, Myringotomy w Tube(s) Cardiovascular Surgical History: Reports: Pacer Respiratory Surgical History: Reports: None GI Surgical History: Reports: Appendectomy, Cholecystectomy, Colonoscopy, EGD Female Surgical History: Reports: Breast Biopsy Other Female Surgeries/Procedures: L- removed lump of cancerous tissue from breast. Endocrine Surgical History: Reports: None Neurological Surgical History: Reports: None Other Neurological Surgeries/Procedures: surgery for pinched nerves Musculoskeletal Surgical History: Reports: Carpal Tunnel, Joint Replacement, Knee Replacement, ORIF, Other (See Below) Other Musculoskeletal Surgeries/Procedures:: pins and screws in left ankle Oncologic Surgical History: Reports: Biopsy of Breast, Lumpectomy Other Oncologic Surgeries/Procedures: Left - SUBSTANCE USE Tobacco Use Status *Q: Never Tobacco User Recreational Drug Use History: No - HOME MEDS Home Medications: Home Meds Azelastine/Fluticasone [Dymista Nasal [place]] 2 spray SAIMA BID 08/22/19 [History] Betamethasone Dipropionate [Diprosone 0.05% Crm] 1 applic TOP DAILY PRN 08/22/19 [History] Docusate Sodium [Colace] 100 mg PO BID PRN 08/22/19 [History] Furosemide [Lasix] 40 mg PO DAILY 08/22/19 [History] Gabapentin [Neurontin] 300 mg PO BEDTIME 08/22/19 [History] Loratadine [Claritin] 10 mg PO DAILY PRN 08/22/19 [History] Magnesium Amino Acid Chelate [Magnesium] 200 mg PO DAILY 08/22/19 [History] Methylcellulose [Fiber] 500 mg PO BID 08/22/19 [History] Metoprolol Tartrate [Lopressor] 25 mg PO QAM 08/22/19 [History] Metoprolol Tartrate [Lopressor] 50 mg PO BEDTIME 08/22/19 [History] Omeprazole Magnesium [Prilosec Otc] 20 mg PO BID 08/22/19 [History] Rosuvastatin Calcium [Crestor] 40 mg PO DAILY 08/22/19 [History] Sodium Chloride [Saline Nasal [place]] 2 spray SAIMA Q2H PRN 08/22/19 [History] Warfarin [Coumadin] 2.5 mg PO DAILY 08/22/19 [History] Albuterol Sulfate [Albuterol Sulfate HFA] 2 puff INH QID PRN 12/19/20 [History] Glimepiride [Amaryl] 4 mg PO DAILY 12/19/20 [History] Iron,Carb/Vit C/Vit B12/Folic [Iron 100 Plus Tablet] 1 tab PO BID 12/19/20 [History] [place]-3/DHA/Epa/Fish Oil [[place] 3 500 Softgel] 1 cap PO BID 12/19/20 [History] Pantoprazole Sodium [Protonix] 40 mg PO DAILY 12/19/20 [History] Potassium Chloride [Klor-Con M20] 20 meq PO BID 12/19/20 [History] SitaGLIPtin [Januvia] 50 mg PO DAILY 12/19/20 [History] Tamsulosin [Flomax] 0.4 mg PO BEDTIME 12/19/20 [History] - CURRENT (IN HOUSE) MEDS Current Meds: Current Medications Lactated Ringer's (Ringers, Lactated) 1,000 mls @ 125 mls/hr IV ASDIRECTED CHARLINE Stop: 12/20/20 23:00 Lidocaine/Sodium Bicarbonate (Buffered Lidocaine 1% In Ns 8.4%) 0.25 ml IDERM ONETIME PRN PRN Reason: Prior to IV Start Stop: 12/20/20 18:00 Sodium Chloride (Saline Flush) 10 ml FLUSH ASDIRECTED PRN PRN Reason: Keep Vein Open Stop: 12/20/20 18:00
--- NOTE | 2020-12-20 08:57 | PCM48HPAN ---
Post Anesthesia Note - EVALUATION WITHIN 48HRS OF ANESTHETIC Vital Signs in Normal Range: Yes Patient Participated in Evaluation: Yes Respiratory Function Stable: Yes Airway Patent: Yes Cardiovascular Function Stable: Yes Hydration Status Stable: Yes Pain Control Satisfactory: Yes Nausea and Vomiting Control Satisfactory: Yes Mental Status Recovered: Yes Vital Signs: 0846 96/40 95 4L NC 70 12 97.2 Last Vital Signs Temp 36.7 C 12/20/20 07:10 Pulse 72 12/20/20 07:10 Resp 20 12/20/20 07:10 BP 139/47 L 12/20/20 07:10 Pulse Ox 99 12/20/20 07:10
--- NOTE | 2020-12-20 09:39 | PROC ---
DATE OF OPERATION: 12/20/2020 SURGEON: David Cottrell MD PREOPERATIVE DIAGNOSIS: History of hyperplastic gastric polyps. POSTOPERATIVE DIAGNOSES: 1. Gastritis. 2. Multiple polyps in the body and fundus. 3. A moderate-sized sliding hiatal hernia. 4. Mild gastritis. OPERATION PERFORMED: Esophagogastroduodenoscopy. ANESTHESIA: Monitored anesthesia care. COMPLICATIONS: None. INDICATION AND CONSENT: The patient is an 85-year-old female who has a long-standing history of GERD. The patient has been taking PPIs for a long time. The patient was found to have multiple gastric polyps in 2017 during her EGD. These were biopsied and found to be hyperplastic. Some of them were large and necrotic at that time, but nothing was malignant. She was scheduled to undergo another surveillance EGD in 3 years. The patient came to my clinic for evaluation for a surveillance EGD. I discussed with the patient risks, benefits, and alternatives, and informed consent was obtained. DETAILS OF THE PROCEDURE: The patient was taken to the procedure room and placed in a supine position. Monitored anesthesia care was induced, and position was changed to left lateral decubitus. Then, a time-out was performed, and the scope was started. Olympus scope was placed into the mouth and taken down through the esophagus. Upper and mid esophagus appeared to be normal. Distal esophagus had mild LA grade A esophagitis. There was no clear evidence of Paz esophagus on gross exam in the distal esophagus or GE junction. Just distal to the GE junction, there were hyperplastic appearing polyps, and in the stomach in the fundus as well as the body, there were multiple small and large polyps. We went down into the antrum. There was mild gastritis in the antrum marked by erythema. The duodenal bulb, first and second portions of duodenum appeared to be normal. We went back into the stomach. Retroflexion revealed medium sized hiatal hernia. There was residual food also in the fundus and greater curvature that had not been cleared. I took biopsies in the antrum due to the gastritis, and we decided to resect only large polyps because there were numerous polyps. The polyps that were more than 0.5 cm were resected using a hot snare. We removed as many of these large polyps as there were visible. Some areas that were obscured by residual gastric contents and could not be examined fully. Once this was done, we used a [place] net to grab some of the polyps and removed them for pathologic exam. We were not able to retrieve all the resected polyps because of the food bolus was obscuring our view. The number of polyps that were resected by snare were 8, and at least 3 of them were removed for pathologic exam. There was minimal bleeding, and we went back to the GE junction. We biopsied the GE junction and distal esophagus in 4 quadrants to be able to examine for Paz esophagus. Biopsies of the GE junction and antrum were done with cold forceps, and the polyp removal was done with a hot snare. Once this was done, the stomach was surveyed again. There was no active bleeding. Air was suctioned out, and the scope was removed. There were no immediate complications. The patient will be allowed to return home and start Coumadin today. [id number] /[id number] MTDD
[2020-12-20 10:52] VITALS: PULSE 70
[2020-12-20 10:53] VITALS: BP 115/57
== END | disposition home or self-care (01) ==
LOC: JD.SDS 06:53
PROVIDERS: ATTEND Surgery
DX: K29.50 Unspecified chronic gastritis without bleeding (principal); K31.89 Other diseases of stomach and duodenum; K21.00 Gastro-esophageal reflux disease with esophagitis, without bleeding; K31.7 Polyp of stomach and duodenum; K29.70 Gastritis, unspecified, without bleeding; K44.9 Diaphragmatic hernia without obstruction or gangrene; I13.0 Hypertensive heart and chronic kidney disease with heart failure and stage 1 through stage 4 chronic kidney disease, or unspecified chronic kidney disease; E11.22 Type 2 diabetes mellitus with diabetic chronic kidney disease; N18.9 Chronic kidney disease, unspecified; I50.9 Heart failure, unspecified; E78.5 Hyperlipidemia, unspecified; I48.19 Other persistent atrial fibrillation; Z90.49 Acquired absence of other specified parts of digestive tract; Z98.890 Other specified postprocedural states; Z79.899 Other long term (current) drug therapy; Z79.01 Long term (current) use of anticoagulants; Z79.84 Long term (current) use of oral hypoglycemic drugs; Z88.8 Allergy status to other drugs, medicaments and biological substances
CPT/HCPCS: 36415; 43239; 43251; 82962; 85610; 88305; 88342; J2704; J7120; 00731; 99100

== ENCOUNTER 2022-02-13 07:42 | Day surgery (SDC) | payer MEDICARE, BC ==
[~2022-02-13 07:42] MED LIST changes: -Lidocaine 1% 0 ML ONE; -Propofol 200 MG/20 ML SDV ONE; +Sodium Chloride 0.9% 10 ML Syringe FLUSH SCH
[2022-02-13] MEDS ORDERED: Lidocaine 1% 4 ML ONE (08:11)
[2022-02-13] MEDS ORDERED: Propofol 200 MG/20 ML SDV ONE ×2 (08:11→10:37)
[2022-02-13] MEDS ORDERED: Lidocaine 1% with EPINEPHrine 1:100,000 20 ML MDV ONE (09:00)
[2022-02-13 14:33] VITALS: BP 115/70; PULSE 68
== END 2022-02-13 11:37 | disposition home or self-care (01) ==
LOC: JD.SDS 07:42
PROVIDERS: ATTEND Surgery
DX: D12.0 Benign neoplasm of cecum (principal); K31.7 Polyp of stomach and duodenum; K29.50 Unspecified chronic gastritis without bleeding; K29.00 Acute gastritis without bleeding; I48.91 Unspecified atrial fibrillation; D64.9 Anemia, unspecified; K64.1 Second degree hemorrhoids; K44.9 Diaphragmatic hernia without obstruction or gangrene; I10 Essential (primary) hypertension; E78.2 Mixed hyperlipidemia; I12.9 Hypertensive chronic kidney disease with stage 1 through stage 4 chronic kidney disease, or unspecified chronic kidney disease; N18.4 Chronic kidney disease, stage 4 (severe); I48.0 Paroxysmal atrial fibrillation; E11.22 Type 2 diabetes mellitus with diabetic chronic kidney disease; Z90.49 Acquired absence of other specified parts of digestive tract; Z98.890 Other specified postprocedural states; Z79.899 Other long term (current) drug therapy; Z79.84 Long term (current) use of oral hypoglycemic drugs; Z88.8 Allergy status to other drugs, medicaments and biological substances
CPT/HCPCS: 36415; 43251; 45380; 85610; J2370; J2704; J7120; 00813; 99100

== ENCOUNTER 2022-06-14 13:31 | Emergency (ER) | payer MEDICARE, BC ==
[2022-06-14 14:21] VITALS: BP 122/67; PULSE 73
[2022-06-14] MEDS ORDERED: Sodium Chloride 0.9% 10 ML Syringe FLUSH PRN (14:39)
[2022-06-14] MEDS ORDERED: Sodium Chloride 0.9% 1,000 ML IV SCH (14:45)
[2022-06-14 15:54] LABS: ESTIMATED GFR 37 mL/min (>60)
== END 2022-06-14 17:15 | disposition home or self-care (01) ==
LOC: JD.ED 13:31
DX: R42 Dizziness and giddiness (principal); E86.0 Dehydration; I48.91 Unspecified atrial fibrillation; I11.0 Hypertensive heart disease with heart failure; I50.9 Heart failure, unspecified; K21.9 Gastro-esophageal reflux disease without esophagitis; E11.9 Type 2 diabetes mellitus without complications; E66.9 Obesity, unspecified; Z68.30 Body mass index [BMI] 30.0-30.9, adult; Z95.0 Presence of cardiac pacemaker; Z91.048 Other nonmedicinal substance allergy status; Z88.8 Allergy status to other drugs, medicaments and biological substances; Z79.01 Long term (current) use of anticoagulants; Z79.899 Other long term (current) drug therapy
CPT/HCPCS: 36415; 70450; 80053; 81003; 84484; 85025; 99284; A9270; 93010

== ENCOUNTER 2022-09-13 09:56 | Day surgery (SDC) | payer MEDICARE, BC ==
[2022-09-13] MEDS ORDERED: Sodium Chloride 0.9% 1,000 ML IV SCH ×2 (10:00→11:45)
[2022-09-13] MEDS ORDERED: fentaNYL 100 MCG/2 ML SDV ONE (10:46)
[2022-09-13] MEDS ORDERED: Propofol 200 MG/20 ML SDV ONE (10:46)
[2022-09-13] MEDS ORDERED: Lidocaine 1% 6 ML ONE (10:47)
[2022-09-13] MEDS ORDERED: Bupivacaine 0.5% 30 ML SDV ONE (10:52)
[2022-09-13] MEDS ORDERED: Phenylephrine HCl In 0.9% NaCl 1 MG/10 ML Vial ONE ×3 (11:44→12:06)
[2022-09-13 13:42] VITALS: PULSE 70
[2022-09-13 13:44] VITALS: BP 106/48
== END 2022-09-13 13:40 | disposition home or self-care (01) ==
LOC: JD.SDS 09:56
PROVIDERS: ATTEND Surgery
DX: K31.7 Polyp of stomach and duodenum (principal); K31.89 Other diseases of stomach and duodenum; K64.8 Other hemorrhoids; I48.20 Chronic atrial fibrillation, unspecified; K64.4 Residual hemorrhoidal skin tags; I13.0 Hypertensive heart and chronic kidney disease with heart failure and stage 1 through stage 4 chronic kidney disease, or unspecified chronic kidney disease; I50.32 Chronic diastolic (congestive) heart failure; N18.4 Chronic kidney disease, stage 4 (severe); E11.22 Type 2 diabetes mellitus with diabetic chronic kidney disease; E21.3 Hyperparathyroidism, unspecified; Z79.01 Long term (current) use of anticoagulants; Z98.890 Other specified postprocedural states; Z87.19 Personal history of other diseases of the digestive system; Z90.49 Acquired absence of other specified parts of digestive tract; Z88.8 Allergy status to other drugs, medicaments and biological substances; Z91.048 Other nonmedicinal substance allergy status; Z88.5 Allergy status to narcotic agent; Z88.6 Allergy status to analgesic agent; E66.9 Obesity, unspecified
CPT/HCPCS: 36415; 43239; 43251; 85610; J2704; J3010; J3490; J7030; 00731; 99100

== ENCOUNTER 2023-08-14 21:34 | Emergency (ER) | payer MEDICARE, BC ==
[2023-08-14 21:57] VITALS: BP 147/63; PULSE 85
[2023-08-14] MEDS ORDERED: Diphtheria,Pertussis(Acell),Tetanus Vaccine 0.5 ML Syringe IM ONE (22:00)
== END 2023-08-15 00:01 | disposition home or self-care (01) ==
LOC: JD.ED 21:34
DX: S00.03XA Contusion of scalp, initial encounter (principal); M25.562 Pain in left knee; I48.91 Unspecified atrial fibrillation; I11.0 Hypertensive heart disease with heart failure; I50.9 Heart failure, unspecified; K21.9 Gastro-esophageal reflux disease without esophagitis; E11.9 Type 2 diabetes mellitus without complications; E66.9 Obesity, unspecified; Z68.42 Body mass index [BMI] 45.0-49.9, adult; Z23 Encounter for immunization; Z88.8 Allergy status to other drugs, medicaments and biological substances; Z91.048 Other nonmedicinal substance allergy status; W18.30XA Fall on same level, unspecified, initial encounter
CPT/HCPCS: 70450; 70450-26; 73562-26-LT; 73562-LT; 90471; 90715; 99283; 99284-25

== ENCOUNTER 2023-08-15 12:06 | Emergency (ER) | payer MEDICARE, BC ==
[2023-08-15] MEDS ORDERED: Lidocaine/EPINEPHrine/Tetracaine Soln 1 ML TOP ONE (12:33)
[2023-08-15] MEDS ORDERED: Lidocaine/Epineph/Tetracaine 3 ML Syringe TOP ONE (12:45)
[2023-08-15] MEDS ORDERED: Lidocaine 1% 10 ML MDV INJECT ONE (13:34)
[2023-08-15 14:42] VITALS: BP 124/60; PULSE 71
== END 2023-08-15 14:38 | disposition home or self-care (01) ==
LOC: JD.ED 12:06
DX: S01.01XA Laceration without foreign body of scalp, initial encounter (principal); R10.2 Pelvic and perineal pain; I48.91 Unspecified atrial fibrillation; I11.0 Hypertensive heart disease with heart failure; I50.9 Heart failure, unspecified; K21.9 Gastro-esophageal reflux disease without esophagitis; M19.90 Unspecified osteoarthritis, unspecified site; E11.9 Type 2 diabetes mellitus without complications; E66.9 Obesity, unspecified; Z91.048 Other nonmedicinal substance allergy status; Z88.8 Allergy status to other drugs, medicaments and biological substances; Z79.899 Other long term (current) drug therapy; Z79.01 Long term (current) use of anticoagulants; W18.30XA Fall on same level, unspecified, initial encounter
CPT/HCPCS: 12001; 72170; 99284; A9270; 99283; J3490

== ENCOUNTER 2023-08-17 09:36 | Emergency (ER) | payer MEDICARE, BC ==
[2023-08-17] MEDS ORDERED: Sodium Chloride 0.9% 10 ML Syringe FLUSH PRN (10:07)
[2023-08-17 10:45] LABS: BASOPHILS PERCENT AUTO 0.3 % (0.0-1.0); EOSINOPHILS ABSOLUTE AUTO 0.1 K/mm3 (0.0-0.4); EOSINOPHILS PERCENT AUTO 1.9 % (0.0-6.0); HEMOGLOBIN 9.5 gm/dl (12.0-16.0); IMMATURE GRAN ABSOLUTE AUTO 0.02 K/mm3 (0.00-0.05); IMMATURE GRAN PERCENT AUTO 0.3 % (0.0-0.4); LYMPHOCYTES ABSOLUTE AUTO 0.8 K/mm3 (1.0-4.8); MEAN CORPUSCULAR HEMOGLOBIN 33.5 pg (28.0-32.0); MEAN CORPUSCULAR HGB CONC 33.9 g/dl (32.0-36.0); MEAN CORPUSCULAR VOLUME 98.6 fl (83.0-99.0); MEAN PLATELET VOLUME 11.9 fl (9.4-12.3); MONOCYTES ABSOLUTE AUTO 0.7 K/mm3 (0.0-0.8); MONOCYTES PERCENT AUTO 11.3 % (0.0-8.0); NEUTROPHILS ABSOLUTE AUTO 4.8 K/mm3 (1.8-7.7); NEUTROPHILS PERCENT AUTO 73.2 % (41.0-71.0); PLATELET COUNT,PLT 102 K/mm3 (150-400); RED BLOOD CELL COUNT 2.84 M/mm3 (4.10-5.30); WHITE BLOOD CELL COUNT,WBC 6.48 K/mm3 (3.9-11.3)
[2023-08-17] MEDS ORDERED: Factor IX Complex Human 500 UNIT VIAL IV ONE ×2 (11:08→11:30)
[2023-08-17 11:15] LABS: A/G RATIO 0.7 (1-2); ALBUMIN 2.4 g/dl (3.4-5.0); ANION GAP 18.8 (5-15); BILIRUBIN TOTAL 0.7 mg/dL (0.2-1.0); BUN/CREATININE RATIO 12.2 (14-18); CALCIUM 9.3 mg/dL (8.5-10.1); CREATININE 3.6 mg/dL (0.55-1.02); EST CRCL DRUG DOSING (CG) 8.06 mL/min; POTASSIUM,K 3.8 mEq/L (3.5-5.1)
[2023-08-17 11:24] LABS: PTT,PARTIAL THROMBOPLSTIN TIME 84.6 SECONDS (21.7-31.4)
[2023-08-17 11:26] LABS: INR > 8.00; PROTHROMBIN TIME > 90.0 SECONDS (9.7-12.0)
[2023-08-17] MEDS ORDERED: Phytonadione 5 MG Tab PO ONE (12:46)
[2023-08-17] MEDS ORDERED: Acetaminophen 325 MG Tab PO ONE (12:46)
[2023-08-17 15:28] VITALS: BP 107/73; PULSE 74
== END 2023-08-17 12:52 ==
LOC: JD.ED 09:36
DX: S06.5X0A Traumatic subdural hemorrhage without loss of consciousness, initial encounter (principal); S06.6X0A Traumatic subarachnoid hemorrhage without loss of consciousness, initial encounter; I48.91 Unspecified atrial fibrillation; N28.9 Disorder of kidney and ureter, unspecified; I11.0 Hypertensive heart disease with heart failure; I50.9 Heart failure, unspecified; E11.9 Type 2 diabetes mellitus without complications; E66.9 Obesity, unspecified; K21.9 Gastro-esophageal reflux disease without esophagitis; Z95.0 Presence of cardiac pacemaker; Z79.01 Long term (current) use of anticoagulants; Z79.899 Other long term (current) drug therapy; Z91.048 Other nonmedicinal substance allergy status; Z88.8 Allergy status to other drugs, medicaments and biological substances; Z88.5 Allergy status to narcotic agent; W19.XXXA Unspecified fall, initial encounter
CPT/HCPCS: 36415; 70450; 80053; 85025; 85610; 85730; 96365; 99285; A9270; J7168

== ENCOUNTER 2025-06-19 16:24 | Emergency (ER) | payer MEDICARE, BC ==
[2025-06-19 16:51] VITALS: BP 142/68; PULSE 70
== END 2025-06-19 18:30 | disposition home or self-care (01) ==
LOC: JD.ED 16:24
DX: S42.291A Other displaced fracture of upper end of right humerus, initial encounter for closed fracture (principal); I11.0 Hypertensive heart disease with heart failure; I50.9 Heart failure, unspecified; E78.00 Pure hypercholesterolemia, unspecified; I48.91 Unspecified atrial fibrillation; E11.9 Type 2 diabetes mellitus without complications; Z91.048 Other nonmedicinal substance allergy status; Z95.0 Presence of cardiac pacemaker; Z88.8 Allergy status to other drugs, medicaments and biological substances; Z79.899 Other long term (current) drug therapy; Z79.01 Long term (current) use of anticoagulants; W18.39XA Other fall on same level, initial encounter; Y93.89 Activity, other specified
CPT/HCPCS: 70450; 70450-26; 73030-26-RT; 73030-RT; 99284